=== PATIENT | male | born 1960 | race Two or more races ===

== ENCOUNTER 2022-03-26 12:01 | Inpatient (IN) | payer SELFPAY ==
[~2022-03-26] VITALS: Ht 182.9 cm; Wt 85.0 kg
[2022-03-26] MEDS ORDERED: chlordiazePOXIDE HCL 25 MG CAP PO ONE (12:45)
[2022-03-26] MEDS ORDERED: LORazepam 2MG/ML-1ML VIAL IV ONE ×2 (12:45→16:45)
[2022-03-26 14:05] LABS: Basophils # (auto) 0 10 ^3/uL (0-0.2); Basophils % (auto) 0.1 % (0.0-2.0); Eosinophils # (auto) 0 10 ^3/uL (0-0.8); Hematocrit 39.6 % (41.0-53.0); Hemoglobin 14.1 g/dL (13.5-17.5); Lymphocytes # (auto) 0.3 10 ^3/uL (0.4-5.4); Lymphocytes % (auto) 2.7 % (10.0-50.0); Mean Corpuscular Hemoglobin 31.8 pg (28.0-32.0); Mean Corpuscular Hgb Conc. 35.7 g/dL (32.0-36.0); Mean Corpuscular Volume 89.1 fL (80.0-100.0); Monocytes # (auto) 0.5 10 ^3/uL (0-1.3); Monocytes % (auto) 5.9 % (0.0-12.0); Neutrophils # (auto) 8.6 10 ^3/uL (1.6-8.6); Neutrophils % (auto) 91.3 % (37.0-80.0); Nucleated Red Blood Cells % 0.1 %; Red Blood Cells 4.44 10^6/uL (4.5-5.90); Red Cell Distribution Width 13.7 % (11.8-14.3); White Blood Cell 9.4 10^3/uL (4.4-10.8)
[2022-03-26 14:23] LABS: Albumin 3.8 g/dL (3.4-5.0); Anion Gap 10 (5-15); Blood Alcohol < 3.0 mg/dL (0-5); Blood Urea Nitrogen 18 mg/dL (7-18); Calcium 8.4 mg/dL (8.5-10.1); Carbon Dioxide 25 mmol/L (21-32); Chloride 82 mmol/L (98-107); Glucose 149 mg/dL (74-106); Magnesium 1.9 mg/dL (1.6-2.6); Potassium 3.7 mmol/L (3.5-5.1)
[2022-03-26 14:27] LABS: Alanine Aminotransferase 31 U/L (16-61); Alkaline Phosphatase 76 U/L (45-117); Aspartate Aminotransferase 58 U/L (15-37); Bilirubin, Total 1.3 mg/dL (0.2-1.0); GFR African American 63 mL/min; GFR Non-African American 52 mL/min; Sodium 117 mmol/L (136-145); Total Protein 6.8 g/dL (6.4-8.2)
[2022-03-26 14:30] LABS: BUN/Creatinine Ratio 12.3
[2022-03-26] MEDS ORDERED: SODIUM CHLORIDE 0.9% 1,000 ML IV ONE (15:00)
[2022-03-26 15:23] LABS: Phosphorus 2.4 mg/dL (2.5-4.90)
[2022-03-26] MEDS ORDERED: LORazepam 2MG/ML-1ML VIAL IV PRN (16:45)
[2022-03-26] MEDS ORDERED: DEXTROSE (50%) 50ML SYRG IV PRN (17:00)
[2022-03-26] MEDS ORDERED: hydrALAZINE HCL 20 MG/ML VL IV PRN (17:00)
[2022-03-26] MEDS ORDERED: ONDANSETRON HCL 4 MG/2 ML VIAL IV PRN (17:00)
[2022-03-26] MEDS ORDERED: MORPHINE SULFATE INJ 2 MG/ml SYRG IV PRN (17:00)
[2022-03-26] MEDS ORDERED: NITROGLYCERIN 0.4 MG SL TAB SL PRN (17:00)
[2022-03-26] MEDS: InsuLIN REG 1unit/0.01ml Soln (100units/ml) SC SCH ×2 (17:20→22:00)
[2022-03-26] MEDS: ACCU-CHEK COMFORT CURVE STRIP VI SCH ×2 (17:21→22:29)
[2022-03-26 17:52] LABS: Cholesterol 229 mg/dL (< 200); Triglycerides 97 mg/dL (< 150)
[2022-03-26 17:54] LABS: HDL Cholesterol 80 mg/dL (40-59); LDL Cholesterol 134 mg/dL (< 100)
[2022-03-26] MEDS: FOLIC ACID 1 MG, MULTIPLE VITAMIN 10 ML, THIAMINE INJ 100 MG in SODIUM CHLORIDE 0.9% 1,... INJ SCH (19:42)
[2022-03-26 20:29] LABS: BUN/Creatinine Ratio 12.3; Calcium 8.7 mg/dL (8.5-10.1)
[2022-03-26 20:45] VITALS: BP 146/92
[2022-03-27 01:17] LABS: BUN/Creatinine Ratio 13.7; Potassium 3.5 mmol/L (3.5-5.1)
[2022-03-27 03:28] LABS: Alcohol, Urine < 3.0 mg/dL (0-10); Amphetamine Screen, Urine NEGATIVE (NEGATIVE); Barbiturate Scree,Urine NEGATIVE (NEGATIVE); Benzodiazephine Screen, Urine NEGATIVE (NEGATIVE); Cocaine Screen, Urine NEGATIVE (NEGATIVE); Opiate Scree,Urine NEGATIVE (NEGATIVE); Phencyclidine Screen, Urine NEGATIVE (NEGATIVE)
[2022-03-27 03:35] LABS: Cannabinoid Screen, Urine POSITIVE (NEGATIVE)
[2022-03-27 03:40] LABS: Urine Bacteria NONE SEEN /hpf (None Seen); Urine Blood 1+ /uL (Negative); Urine Specific Gravity 1.008 (1.001-1.035); Urine WBC 1 /hpf (0 - 3)
[2022-03-27 05:00] VITALS: BP 139/74
[2022-03-27 05:52] LABS: Basophils # (auto) 0 10 ^3/uL (0-0.2); Basophils % (auto) 0.1 % (0.0-2.0); Eosinophils # (auto) 0 10 ^3/uL (0-0.8); Hematocrit 36.7 % (41.0-53.0); Hemoglobin 12.9 g/dL (13.5-17.5); Lymphocytes # (auto) 0.4 10 ^3/uL (0.4-5.4); Lymphocytes % (auto) 4.2 % (10.0-50.0); Mean Corpuscular Hemoglobin 31.5 pg (28.0-32.0); Mean Corpuscular Hgb Conc. 35.2 g/dL (32.0-36.0); Mean Corpuscular Volume 89.6 fL (80.0-100.0); Monocytes # (auto) 0.6 10 ^3/uL (0-1.3); Monocytes % (auto) 6.7 % (0.0-12.0); Neutrophils # (auto) 7.8 10 ^3/uL (1.6-8.6); Red Cell Distribution Width 13.8 % (11.8-14.3); White Blood Cell 8.7 10^3/uL (4.4-10.8)
[2022-03-27] MEDS: ACCU-CHEK COMFORT CURVE STRIP VI SCH ×4 (06:05→21:45)
[2022-03-27] MEDS: InsuLIN REG 1unit/0.01ml Soln (100units/ml) SC SCH ×4 (06:07→21:45)
[2022-03-27 06:11] LABS: BUN/Creatinine Ratio 13.5; Calcium 8.1 mg/dL (8.5-10.1); Potassium 3.4 mmol/L (3.5-5.1)
[2022-03-27 08:00] VITALS: BP 148/67
[2022-03-27 12:00] VITALS: BP 145/78
[2022-03-27 12:34] LABS: BUN/Creatinine Ratio 15.7; Calcium 8.1 mg/dL (8.5-10.1); Potassium 3.5 mmol/L (3.5-5.1)
[2022-03-27] MEDS: traMADol HCL 50 MG TAB PO PRN ×2 (15:46→21:47)
[2022-03-27] MEDS: SODIUM CHLORIDE 0.9% 1,000 ML IV SCH ×2 (15:54→23:00)
[2022-03-27 16:00] VITALS: BP 121/53
[2022-03-27] MEDS: FOLIC ACID 1 MG, MULTIPLE VITAMIN 10 ML, THIAMINE INJ 100 MG in SODIUM CHLORIDE 0.9% 1,... INJ SCH (18:00)
[2022-03-27 18:13] LABS: BUN/Creatinine Ratio 14.4; Calcium 7.9 mg/dL (8.5-10.1); Potassium 3.4 mmol/L (3.5-5.1)
[2022-03-27] MEDS: chlordiazePOXIDE HCL 25 MG CAP PO SCH (18:42)
[2022-03-27 22:00] VITALS: BP 161/65
[2022-03-28] MEDS: chlordiazePOXIDE HCL 25 MG CAP PO SCH ×5 (00:18→23:47)
[2022-03-28] MEDS: SODIUM CHLORIDE 0.9% 1,000 ML IV SCH ×3 (02:50→16:10)
[2022-03-28 05:00] VITALS: BP 148/78
[2022-03-28] MEDS ORDERED: LOSA25TA38 PO (05:28)
[2022-03-28] MEDS ORDERED: ASPI-378 OR (05:28)
[2022-03-28] MEDS ORDERED: SERT50TA19 PO (05:28)
[2022-03-28] MEDS ORDERED: INSLANTI SC (05:28)
[2022-03-28] MEDS ORDERED: HYDR-4072 PO (05:28)
[2022-03-28] MEDS ORDERED: MORP30TA PO (05:28)
[2022-03-28] MEDS ORDERED: FENO160T8 PO (05:28)
[2022-03-28] MEDS: ACCU-CHEK COMFORT CURVE STRIP VI SCH ×4 (06:11→21:56)
[2022-03-28] MEDS: InsuLIN REG 1unit/0.01ml Soln (100units/ml) SC SCH ×4 (06:11→22:09)
[2022-03-28] MEDS: traMADol HCL 50 MG TAB PO PRN (06:12)
[2022-03-28 08:00] VITALS: BP 122/68
[2022-03-28 08:43] LABS: Calcium 7.6 mg/dL (8.5-10.1); Potassium 3.2 mmol/L (3.5-5.1)
[2022-03-28 08:46] LABS: BUN/Creatinine Ratio 13.3; Bilirubin, Total 0.6 mg/dL (0.2-1.0); Total Protein 5.8 g/dL (6.4-8.2)
[2022-03-28] MEDS: HYDROcodone-ACET 10/325MG TAB PO PRN ×3 (10:11→23:13)
[2022-03-28 12:00] VITALS: BP 133/70
[2022-03-28 16:00] VITALS: BP 134/76
[2022-03-28] MEDS: FOLIC ACID 1 MG, MULTIPLE VITAMIN 10 ML, THIAMINE INJ 100 MG in SODIUM CHLORIDE 0.9% 1,... INJ SCH (17:26)
[2022-03-29] MEDS: SODIUM CHLORIDE 0.9% 1,000 ML IV SCH ×3 (01:00→12:10)
[2022-03-29 04:49] VITALS: BP 159/81
[2022-03-29] MEDS: ACCU-CHEK COMFORT CURVE STRIP VI SCH ×2 (06:35→13:51)
[2022-03-29] MEDS: chlordiazePOXIDE HCL 25 MG CAP PO SCH ×2 (06:35→13:51)
[2022-03-29] MEDS: InsuLIN REG 1unit/0.01ml Soln (100units/ml) SC SCH ×2 (06:45→11:30)
[2022-03-29] MEDS: HYDROcodone-ACET 10/325MG TAB PO PRN (08:00)
[2022-03-29 09:00] VITALS: BP 159/79
[2022-03-29] MEDS ORDERED: FOLI1TAB6 PO (10:06)
[2022-03-29] MEDS ORDERED: CHL25C PO (10:06)
[2022-03-29] MEDS ORDERED: THIA100T5 PO (10:06)
[2022-03-29] MEDS ORDERED: TRAM50TA2 PO (10:06)
[2022-03-29 12:57] VITALS: BP 141/78
[2022-03-29 13:00] VITALS: BP 141/78
== END 2022-03-29 14:50 | disposition home or self-care (01) | DRG 92 ==
LOC: ER 12:01 → EDBD 12:01 → TELE 16:59 → TELE-EAST 20:26
PROVIDERS: ADMIT Registered Nurse; ATTEND Registered Nurse
DX: G92.9 Unspecified toxic encephalopathy (principal); C18.9 Malignant neoplasm of colon, unspecified; E87.1 Hypo-osmolality and hyponatremia; E11.22 Type 2 diabetes mellitus with diabetic chronic kidney disease; E11.65 Type 2 diabetes mellitus with hyperglycemia; I12.9 Hypertensive chronic kidney disease with stage 1 through stage 4 chronic kidney disease, or unspecified chronic kidney disease; K76.0 Fatty (change of) liver, not elsewhere classified; N18.31 Chronic kidney disease, stage 3a; Z20.822 Contact with and (suspected) exposure to COVID-19; F10.129 Alcohol abuse with intoxication, unspecified; Y90.9 Presence of alcohol in blood, level not specified; Z85.038 Personal history of other malignant neoplasm of large intestine; Z89.512 Acquired absence of left leg below knee; Z71.41 Alcohol abuse counseling and surveillance of alcoholic
CPT/HCPCS: 36415; 70450; 71045; 80048; 80053; 80061; 80307; 80320; 81001; 82140; 82550; 82962; 83036; 83605; 83690; 83735; 83880; 83930; 84100; 84443; 84484; 85025; 93005; 93306; 93886; 96361; 96374; 96375; 99291; G0378; J1815

== ENCOUNTER 2022-05-24 09:07 | Inpatient (IN) | payer BC, MEDICAID, OTHER ==
[~2022-05-24] VITALS: Ht 203.2 cm; Wt 79.0 kg
[~2022-05-24 09:07] MED LIST: ASPI-378 OR; CHL25C PO; FENO160T8 PO; FOLI1TAB6 PO; HYDR-4072 PO; INSLANTI SC; LOSA25TA38 PO; MORP30TA PO; SERT50TA19 PO; THIA100T5 PO; TRAM50TA2 PO
[2022-05-24] MEDS ORDERED: SODIUM CHLORIDE 0.9% 500 ML IV ONE (09:45)
[2022-05-24 10:31] LABS: Basophils # (auto) 0.1 10 ^3/uL (0-0.2); Basophils % (auto) 1.1 % (0.0-2.0); Eosinophils # (auto) 0.1 10 ^3/uL (0-0.8); Eosinophils % (auto) 2.3 % (0.0-7.0); Hematocrit 47.2 % (41.0-53.0); Hemoglobin 15.3 g/dL (13.5-17.5); Lymphocytes # (auto) 0.9 10 ^3/uL (0.4-5.4); Lymphocytes % (auto) 13.8 % (10.0-50.0); Mean Corpuscular Hemoglobin 30.4 pg (28.0-32.0); Mean Corpuscular Hgb Conc. 32.5 g/dL (32.0-36.0); Mean Corpuscular Volume 93.6 fL (80.0-100.0); Monocytes # (auto) 0.3 10 ^3/uL (0-1.3); Monocytes % (auto) 4.7 % (0.0-12.0); Neutrophils # (auto) 5.1 10 ^3/uL (1.6-8.6); Neutrophils % (auto) 78.1 % (37.0-80.0); Nucleated Red Blood Cells % 0.1 %; Red Blood Cells 5.04 10^6/uL (4.5-5.90); White Blood Cell 6.5 10^3/uL (4.4-10.8)
[2022-05-24 10:54] LABS: Urine Bacteria MANY /hpf (None Seen); Urine Blood 1+ /uL (Negative); Urine Mucus FEW (None Seen); Urine Specific Gravity 1.016 (1.001-1.035); Urine WBC 652 /hpf (0 - 3); Urine WBC Clumps PRESENT /hpf (None Seen)
[2022-05-24 10:56] LABS: Albumin 4.3 g/dL (3.4-5.0); Calcium 9.4 mg/dL (8.5-10.1)
[2022-05-24 11:11] LABS: BUN/Creatinine Ratio 12.2; Bilirubin, Total 0.9 mg/dL (0.2-1.0); Total Protein 7.5 g/dL (6.4-8.2)
[2022-05-24] MEDS ORDERED: IOHEXOL 300 MG/ML 100ML BOTTLE IJ ONE (11:28)
[2022-05-24] MEDS ORDERED: cloNIDine HCL 0.1 MG TAB PO ONE (13:00)
[2022-05-24] MEDS ORDERED: cefTRIAXone 1GM/50ML D5W 50 ML IV ONE (14:45)
[2022-05-24] MEDS ORDERED: NITROGLYCERIN 0.4 MG SL TAB SL PRN (15:15)
[2022-05-24] MEDS ORDERED: hydrALAZINE HCL 20 MG/ML VL IV PRN (15:15)
[2022-05-24] MEDS ORDERED: hydrALAZINE HCL 20 MG/ML VL IV ONE (15:15)
[2022-05-24] MEDS ORDERED: MORPHINE SULFATE INJ 2 MG/ml SYRG IV PRN (15:15)
[2022-05-24] MEDS ORDERED: DEXTROSE (50%) 50ML SYRG IV PRN (15:30)
[2022-05-24] MEDS: SOD CHL 0.45% 1,000 ML IV SCH ×2 (15:42→20:00)
[2022-05-24] MEDS: InsuLIN REG 1unit/0.01ml Soln (100units/ml) SC SCH ×2 (17:00→22:00)
[2022-05-24] MEDS: ACCU-CHEK COMFORT CURVE STRIP VI SCH ×2 (17:08→22:45)
[2022-05-24 20:00] VITALS: BP 146/82
[2022-05-25 05:00] VITALS: BP 133/82
[2022-05-25 06:14] LABS: Basophils # (auto) 0.1 10 ^3/uL (0-0.2); Basophils % (auto) 1.1 % (0.0-2.0); Eosinophils # (auto) 0.1 10 ^3/uL (0-0.8); Eosinophils % (auto) 2.6 % (0.0-7.0); Hemoglobin 13.5 g/dL (13.5-17.5); Lymphocytes # (auto) 0.7 10 ^3/uL (0.4-5.4); Lymphocytes % (auto) 15.9 % (10.0-50.0); Mean Corpuscular Hemoglobin 30.8 pg (28.0-32.0); Mean Corpuscular Hgb Conc. 33.7 g/dL (32.0-36.0); Mean Corpuscular Volume 91.6 fL (80.0-100.0); Monocytes # (auto) 0.3 10 ^3/uL (0-1.3); Monocytes % (auto) 6.8 % (0.0-12.0); Neutrophils # (auto) 3.3 10 ^3/uL (1.6-8.6); Neutrophils % (auto) 73.6 % (37.0-80.0); Nucleated Red Blood Cells % 0.1 %; Red Blood Cells 4.37 10^6/uL (4.5-5.90); Red Cell Distribution Width 13.8 % (11.8-14.3); White Blood Cell 4.5 10^3/uL (4.4-10.8)
[2022-05-25 06:17] LABS: Albumin 3.4 g/dL (3.4-5.0)
[2022-05-25 06:22] LABS: BUN/Creatinine Ratio 15.6; Bilirubin, Total 0.7 mg/dL (0.2-1.0); Calcium 8.7 mg/dL (8.5-10.1); Total Protein 6.3 g/dL (6.4-8.2)
[2022-05-25] MEDS: ACCU-CHEK COMFORT CURVE STRIP VI SCH ×4 (06:29→21:57)
[2022-05-25] MEDS: InsuLIN REG 1unit/0.01ml Soln (100units/ml) SC SCH ×4 (06:34→21:57)
[2022-05-25 08:00] VITALS: BP 161/88
[2022-05-25] MEDS: cefTRIAXone 1GM/50ML D5W 50 ML IV SCH (08:40)
[2022-05-25] MEDS: ENOXAPARIN SOD 40 MG/0.4 ML SYRINGE SC SCH (08:41)
[2022-05-25 12:00] VITALS: BP 150/86
[2022-05-25] MEDS ORDERED: VANCOMYCIN PER PHARMACY 0 MG IV SCH (12:45)
[2022-05-25] MEDS: SODIUM CHLORIDE 0.9% 1,000 ML IV SCH ×2 (13:00→19:40)
[2022-05-25] MEDS: VANCOMYCIN 1GM/250ML 250 ML IV SCH (16:34)
[2022-05-25 17:00] VITALS: BP 187/101
[2022-05-25] MEDS: cloNIDine HCL 0.1 MG TAB PO PRN (17:11)
[2022-05-25] MEDS: HYDROcodone-ACET 7.5/325MG TAB PO PRN (21:59)
[2022-05-25 22:00] VITALS: BP 106/67
[2022-05-26] MEDS: VANCOMYCIN 1GM/250ML 250 ML IV SCH (01:05)
[2022-05-26] MEDS: SODIUM CHLORIDE 0.9% 1,000 ML IV SCH ×2 (01:09→09:19)
[2022-05-26 05:00] VITALS: BP 128/79
[2022-05-26 05:57] LABS: Basophils # (auto) 0 10 ^3/uL (0-0.2); Basophils % (auto) 1.1 % (0.0-2.0); Eosinophils # (auto) 0.1 10 ^3/uL (0-0.8); Eosinophils % (auto) 3.3 % (0.0-7.0); Hematocrit 37.7 % (41.0-53.0); Hemoglobin 12.7 g/dL (13.5-17.5); Lymphocytes # (auto) 0.9 10 ^3/uL (0.4-5.4); Lymphocytes % (auto) 22.8 % (10.0-50.0); Mean Corpuscular Hemoglobin 30.9 pg (28.0-32.0); Mean Corpuscular Hgb Conc. 33.6 g/dL (32.0-36.0); Monocytes # (auto) 0.3 10 ^3/uL (0-1.3); Monocytes % (auto) 7.7 % (0.0-12.0); Neutrophils # (auto) 2.5 10 ^3/uL (1.6-8.6); Neutrophils % (auto) 65.1 % (37.0-80.0); Nucleated Red Blood Cells % 0.1 %; Red Cell Distribution Width 13.9 % (11.8-14.3); White Blood Cell 3.8 10^3/uL (4.4-10.8)
[2022-05-26] MEDS: ACCU-CHEK COMFORT CURVE STRIP VI SCH ×2 (06:21→11:07)
[2022-05-26] MEDS: InsuLIN REG 1unit/0.01ml Soln (100units/ml) SC SCH ×2 (06:21→11:44)
[2022-05-26] MEDS: HYDROcodone-ACET 7.5/325MG TAB PO PRN (06:23)
[2022-05-26 06:26] LABS: BUN/Creatinine Ratio 13.9; Calcium 8.3 mg/dL (8.5-10.1)
[2022-05-26 09:00] VITALS: BP 164/96
[2022-05-26] MEDS: ENOXAPARIN SOD 40 MG/0.4 ML SYRINGE SC SCH (09:20)
[2022-05-26] MEDS: cefTRIAXone 1GM/50ML D5W 50 ML IV SCH (09:20)
[2022-05-26] MEDS: cloNIDine HCL 0.1 MG TAB PO PRN (09:30)
[2022-05-26] MEDS ORDERED: levoFLOXacin 500MG 100 ML IV ONE (10:45)
[2022-05-26] MEDS ORDERED: LEVO500T31 PO (10:55)
[2022-05-26] MEDS ORDERED: HYDR-4902 PO (10:55)
[2022-05-26 12:34] VITALS: BP 145/84
[2022-05-26 13:00] VITALS: BP 145/84
[2022-05-27] MEDS ORDERED: levoFLOXacin 500MG 100 ML IV SCH (10:00)
== END 2022-05-26 14:35 | disposition home or self-care (01) | DRG 872 ==
LOC: ER 09:07 → TELE 15:27 → TELE-WESTW 22:20
PROVIDERS: ADMIT Registered Nurse; ATTEND Family Medicine
DX: A41.01 Sepsis due to Methicillin susceptible Staphylococcus aureus (principal); N17.9 Acute kidney failure, unspecified; N30.00 Acute cystitis without hematuria; Z68.1 Body mass index [BMI] 19.9 or less, adult; R62.7 Adult failure to thrive; I16.0 Hypertensive urgency; E86.0 Dehydration; N18.31 Chronic kidney disease, stage 3a; E11.22 Type 2 diabetes mellitus with diabetic chronic kidney disease; F10.10 Alcohol abuse, uncomplicated; Z20.822 Contact with and (suspected) exposure to COVID-19; I12.9 Hypertensive chronic kidney disease with stage 1 through stage 4 chronic kidney disease, or unspecified chronic kidney disease; K76.0 Fatty (change of) liver, not elsewhere classified; Z83.3 Family history of diabetes mellitus; Z85.048 Personal history of other malignant neoplasm of rectum, rectosigmoid junction, and anus; Z89.512 Acquired absence of left leg below knee; Z90.49 Acquired absence of other specified parts of digestive tract; Z93.3 Colostomy status; Z92.21 Personal history of antineoplastic chemotherapy; Z71.41 Alcohol abuse counseling and surveillance of alcoholic
CPT/HCPCS: 36415; 71260; 74177; 80048; 80053; 81001; 82962; 83735; 85025; 87040; 87086; 87088; 87186; 96361; 96365; 96375; G0378; J0696; J1815; J1956

== ENCOUNTER → 2022-07-22 | Outpatient (CLI) | payer MEDICAID ==
[~2022-07-22] MED LIST changes: +HYDR-4902 PO; +LEVO500T31 PO
[2022-07-22 09:23] LABS: Basophils # (auto) 0.1 10 ^3/uL (0-0.2); Eosinophils # (auto) 0.2 10 ^3/uL (0-0.8); Eosinophils % (auto) 3.9 % (0.0-7.0); Hematocrit 45.7 % (41.0-53.0); Hemoglobin 15.2 g/dL (13.5-17.5); Lymphocytes % (auto) 18.8 % (10.0-50.0); Mean Corpuscular Hemoglobin 31.1 pg (28.0-32.0); Mean Corpuscular Hgb Conc. 33.2 g/dL (32.0-36.0); Mean Corpuscular Volume 93.8 fL (80.0-100.0); Monocytes # (auto) 0.4 10 ^3/uL (0-1.3); Monocytes % (auto) 6.9 % (0.0-12.0); Neutrophils # (auto) 3.7 10 ^3/uL (1.6-8.6); Neutrophils % (auto) 69.4 % (37.0-80.0); Red Blood Cells 4.88 10^6/uL (4.5-5.90); Red Cell Distribution Width 14.7 % (11.8-14.3); White Blood Cell 5.3 10^3/uL (4.4-10.8)
[2022-07-22 09:41] LABS: Albumin 3.9 g/dL (3.4-5.0); Potassium 4.7 mmol/L (3.5-5.1)
[2022-07-22 09:44] LABS: BUN/Creatinine Ratio 20.2; Bilirubin, Total 0.7 mg/dL (0.2-1.0); Total Protein 6.9 g/dL (6.4-8.2)
[2022-07-22 10:08] LABS: Urine Bacteria NONE SEEN /hpf (None Seen); Urine Blood Negative /uL (Negative); Urine Specific Gravity 1.015 (1.001-1.035); Urine WBC <1 /hpf (0 - 3)
== END | disposition home or self-care (01) ==
LOC: LAB 08:55
PROVIDERS: ATTEND Internal Medicine
DX: Z12.11 Encounter for screening for malignant neoplasm of colon (principal); E11.9 Type 2 diabetes mellitus without complications; I10 Essential (primary) hypertension; N39.0 Urinary tract infection, site not specified; F10.10 Alcohol abuse, uncomplicated
CPT/HCPCS: 36415; 80053; 80061; 81001; 82043; 83036; 84153; 84443; 85025

== ENCOUNTER → 2022-07-28 | Outpatient (CLI) | payer MEDICAID | END | disposition home or self-care (01) | LOC: LAB 13:41 | PROVIDERS: ATTEND Internal Medicine | DX: Z12.11 Encounter for screening for malignant neoplasm of colon (principal); E11.9 Type 2 diabetes mellitus without complications; I10 Essential (primary) hypertension; N39.0 Urinary tract infection, site not specified | CPT/HCPCS: 82270 ==

== ENCOUNTER → 2022-08-11 | Outpatient (CLI) | payer MEDICAID ==
[2022-08-11 12:57] LABS: Albumin 3.9 g/dL (3.4-5.0); Bilirubin, Direct 0.2 mg/dL (0-0.2); Total Protein 6.8 g/dL (6.4-8.2)
== END | disposition home or self-care (01) ==
LOC: LAB 11:52
PROVIDERS: ATTEND Internal Medicine
DX: E78.5 Hyperlipidemia, unspecified (principal)
CPT/HCPCS: 36415; 80076

== ENCOUNTER → 2022-10-22 | Outpatient (CLI) | payer MEDICAID ==
[2022-10-22 12:32] LABS: Albumin 4.3 g/dL (3.4-5.0); Bilirubin, Direct 0.2 mg/dL (0-0.2); Bilirubin, Total 0.9 mg/dL (0.2-1.0); Total Protein 7.4 g/dL (6.4-8.2)
== END | disposition home or self-care (01) ==
LOC: LAB 11:43
PROVIDERS: ATTEND Internal Medicine
DX: E78.5 Hyperlipidemia, unspecified (principal)
CPT/HCPCS: 36415; 80061; 80076

== ENCOUNTER → 2023-01-21 | Outpatient (CLI) | payer MEDICAID ==
[2023-01-21 12:13] LABS: Cholesterol 182 mg/dL (< 200); HDL Cholesterol 58 mg/dL (40-59); LDL Cholesterol 112 mg/dL (< 100); Triglycerides 87 mg/dL (< 150)
== END | disposition home or self-care (01) ==
LOC: LAB 10:23
PROVIDERS: ATTEND Internal Medicine
DX: E11.8 Type 2 diabetes mellitus with unspecified complications (principal); I10 Essential (primary) hypertension; E78.5 Hyperlipidemia, unspecified
CPT/HCPCS: 36415; 80061; 80074; 83036

== ENCOUNTER → 2023-05-02 | Outpatient (CLI) | payer MEDICAID ==
[~2023-05-02] MED LIST changes: +FENO160T PO; -FENO160T8 PO; +FOLI-119 PO; -FOLI1TAB6 PO; +LOSA25TA15 PO; -LOSA25TA38 PO; +SERT-206 PO; -SERT50TA19 PO
[2023-05-02 11:04] LABS: Albumin 4.2 g/dL (3.4-5.0); Calcium 8.8 mg/dL (8.5-10.1); Potassium 5.2 mmol/L (3.5-5.1)
[2023-05-02 11:10] LABS: Bilirubin, Total 0.9 mg/dL (0.2-1.0); Total Protein 7.4 g/dL (6.4-8.2)
== END | disposition home or self-care (01) ==
LOC: LAB 10:14
PROVIDERS: ATTEND Internal Medicine
DX: E11.9 Type 2 diabetes mellitus without complications (principal); E78.5 Hyperlipidemia, unspecified
CPT/HCPCS: 36415; 80053; 83036

== ENCOUNTER → 2023-05-09 | Outpatient (CLI) | payer MEDICAID ==
[2023-05-09 12:23] LABS: BUN/Creatinine Ratio 21.4 (10.0-20.0); Potassium 5.1 mmol/L (3.5-5.1)
== END | disposition home or self-care (01) ==
LOC: LAB 10:09
PROVIDERS: ATTEND Internal Medicine
DX: E11.8 Type 2 diabetes mellitus with unspecified complications (principal)
CPT/HCPCS: 36415; 80048

== ENCOUNTER → 2023-06-09 | Outpatient (CLI) | payer MEDICAID ==
[2023-06-09 12:12] LABS: Chloride 108 mmol/L (98-107); Potassium 5.1 mmol/L (3.5-5.1); Sodium 137 mmol/L (136-145)
[2023-06-09 12:13] LABS: Anion Gap 6 (5-15); Calcium 9.3 mg/dL (8.5-10.1); Carbon Dioxide 23 mmol/L (20-30)
[2023-06-09 12:18] LABS: BUN/Creatinine Ratio 16.8 (10.0-20.0); Blood Urea Nitrogen 27 mg/dL (9-23); Glucose 111 mg/dL (74-106); Triglycerides 107 mg/dL (< 150)
[2023-06-09 12:19] LABS: LDL Cholesterol 174 mg/dL (< 100)
[2023-06-09 12:20] LABS: Cholesterol 243 mg/dL (< 200); HDL Cholesterol 52 mg/dL (40-59)
== END | disposition home or self-care (01) ==
LOC: LAB 11:33
PROVIDERS: ATTEND Internal Medicine
DX: E11.22 Type 2 diabetes mellitus with diabetic chronic kidney disease (principal); N18.30 Chronic kidney disease, stage 3 unspecified
CPT/HCPCS: 36415; 80048; 80061; 83036

== ENCOUNTER → 2023-07-15 | Outpatient (CLI) | payer MEDICAID ==
[2023-07-15 09:32] LABS: Albumin 4.8 g/dL (3.2-4.8); Bilirubin, Direct 0.2 mg/dL (<0.3); Bilirubin, Total 0.8 mg/dL (0.2-1.0); Total Protein 7.6 g/dL (5.7-8.2)
== END | disposition home or self-care (01) ==
LOC: LAB 08:48
PROVIDERS: ATTEND Internal Medicine
DX: I12.9 Hypertensive chronic kidney disease with stage 1 through stage 4 chronic kidney disease, or unspecified chronic kidney disease (principal); N18.30 Chronic kidney disease, stage 3 unspecified
CPT/HCPCS: 36415; 80076

== ENCOUNTER → 2023-09-05 | Outpatient (CLI) | payer MEDICAID ==
[2023-09-05 11:29] LABS: Creatinine, Urine 209.71 mg/dL (30.0-125.0)
[2023-09-05 11:33] LABS: Alanine Aminotransferase 18 U/L (7-40); Albumin 4.7 g/dL (3.2-4.8); Alkaline Phosphatase 73 U/L (46-116); Anion Gap 7 (5-15); Aspartate Aminotransferase 12 U/L (13-40); BUN/Creatinine Ratio 19.1 (10.0-20.0); Blood Urea Nitrogen 31 mg/dL (9-23); Calcium 9.3 mg/dL (8.5-10.1); Carbon Dioxide 24 mmol/L (20-30); Chloride 109 mmol/L (98-107); Cholesterol 281 mg/dL (< 200); Glucose 177 mg/dL (74-106); HDL Cholesterol 48 mg/dL (40-59); LDL Cholesterol 218 mg/dL (< 100); Potassium 5.3 mmol/L (3.5-5.1); Sodium 140 mmol/L (136-145); Triglycerides 157 mg/dL (< 150)
[2023-09-05 11:34] LABS: Bilirubin, Total 0.5 mg/dL (0.2-1.0); Total Protein 7.1 g/dL (5.7-8.2)
== END | disposition home or self-care (01) ==
LOC: LAB 10:16
PROVIDERS: ATTEND Internal Medicine
DX: I12.9 Hypertensive chronic kidney disease with stage 1 through stage 4 chronic kidney disease, or unspecified chronic kidney disease (principal); E11.22 Type 2 diabetes mellitus with diabetic chronic kidney disease; N18.30 Chronic kidney disease, stage 3 unspecified
CPT/HCPCS: 36415; 80053; 80061; 82043; 82570

== ENCOUNTER 2025-02-21 09:57 | Outpatient (CLI) | payer MEDICAID ==
[~2025-02-21 09:57] MED LIST changes: +LOSA-533 PO; -LOSA25TA15 PO
[2025-02-21 10:32] LABS: Basophils # (auto) 0 10 ^3/uL (0-0.2); Basophils % (auto) 0.8 % (0.0-2.0); Eosinophils # (auto) 0.1 10 ^3/uL (0-0.8); Eosinophils % (auto) 2.4 % (0.0-7.0); Hematocrit 48.3 % (41.0-53.0); Hemoglobin 16.4 g/dL (13.5-17.5); Lymphocytes # (auto) 0.9 10 ^3/uL (0.4-5.4); Lymphocytes % (auto) 14.2 % (10.0-50.0); Mean Corpuscular Hemoglobin 32.5 pg (28.0-32.0); Mean Corpuscular Volume 95.7 fL (80.0-100.0); Monocytes # (auto) 0.4 10 ^3/uL (0-1.3); Neutrophils # (auto) 4.6 10 ^3/uL (1.6-8.6); Neutrophils % (auto) 75.6 % (37.0-80.0); Platelet Count (auto) 268 10^3/uL (140-450); Red Blood Cells 5.04 10^6/uL (4.5-5.90); Red Cell Distribution Width 14.8 % (11.8-14.3); White Blood Cell 6.1 10^3/uL (4.4-10.8)
[2025-02-21 11:10] LABS: Alanine Aminotransferase 17 U/L (7-40); Alkaline Phosphatase 77 U/L (46-116); Anion Gap 9 (5-15); Aspartate Aminotransferase 18 U/L (13-40); BUN/Creatinine Ratio 15.6 (10.0-20.0); Bilirubin, Total 0.8 mg/dL (0.2-1.0); Blood Urea Nitrogen 23 mg/dL (9-23); Calcium 10.2 mg/dL (8.7-10.4); Carbon Dioxide 24 mmol/L (20-31); Chloride 107 mmol/L (98-107); Potassium 4.7 mmol/L (3.5-5.1); Sodium 140 mmol/L (136-145); Total Protein 7.3 g/dL (5.7-8.2); Triglycerides 105 mg/dL (< 150)
[2025-02-21 11:12] LABS: Albumin 4.8 g/dL (3.2-4.8); Cholesterol 295 mg/dL (< 200); Glucose 131 mg/dL (74-106); HDL Cholesterol 65 mg/dL (40-59); LDL Cholesterol 212 mg/dL (< 100)
== END 2025-02-21 17:00 | disposition home or self-care (01) ==
LOC: LAB 09:57
PROVIDERS: ATTEND Internal Medicine
DX: E11.42 Type 2 diabetes mellitus with diabetic polyneuropathy (principal); Z12.11 Encounter for screening for malignant neoplasm of colon; Z00.00 Encounter for general adult medical examination without abnormal findings; Z79.899 Other long term (current) drug therapy
CPT/HCPCS: 36415; 80053; 80061; 83036; 84153; 84443; 85025

== ENCOUNTER 2025-02-27 15:37 | Outpatient (CLI) | payer MEDICAID ==
[2025-02-27 15:50] LABS: Urine Bacteria None Seen /hpf (None Seen)
[2025-02-27 16:00] LABS: Urine Blood Negative /uL (Negative); Urine Clarity Clear (Clear); Urine Color Light-Yellow (Yellow); Urine Protein, UAD TRACE (Negative); Urine Specific Gravity 1.015 (1.001-1.035); Urine Squamous Epithelial Cell None Seen /hpf (<5); Urine Urobilinogen Normal (Negative); Urine WBC 1 /HPF (0-3); Urine pH 5.5 (5.0-9.0)
== END 2025-02-27 17:00 | disposition home or self-care (01) ==
LOC: LAB 15:37
PROVIDERS: ATTEND Internal Medicine
DX: Z12.11 Encounter for screening for malignant neoplasm of colon (principal); E11.42 Type 2 diabetes mellitus with diabetic polyneuropathy; Z00.00 Encounter for general adult medical examination without abnormal findings
CPT/HCPCS: 81001; 82270

== ENCOUNTER 2025-07-25 09:15 | Inpatient (IN) | payer MEDICAID ==
[~2025-07-25] VITALS: Ht 203.2 cm; Wt 85.6 kg
--- NOTE | 2025-07-25 09:32 | ECG ---
[facility] Test Date: 2025-07-25 Test Time: 09:27:39 Pat Name: SOPHIE DEL TORO Department: Room: 0236 Gender: M Life Skills Teacher: ER : 1960 Requested By: ERNESTO JIMENEZ Order Number: [id number] Reading MD: Reji Colón Measurements Intervals [place] Rate: 92 P: -40 NH: 158 QRS: 52 QRSD: 96 T: 68 QT: 369 QTc: 457 Interpretive Statements Sinus rhythm Atrial premature complex Baseline wander in lead(s) III,aVF,V2 Electronically Signed On 07-30-2025 13:26:31 PST by Reji Colón Please click the below link to view image of tracing.
--- NOTE | 2025-07-25 10:11 | DVH ---
CHEST RADIOGRAPH Indication: sob Technique: Single frontal view of the chest was obtained Comparison: CHEST PORTABLE on DOS: 03/26/22, CXRP on DOS: 03/26/22 FINDINGS: Lines and Tubes: Anterior fusion lower cervical spine Lungs: No focal consolidation. Pleura: No effusion. No pneumothorax. Cardiomediastinal contours: Unremarkable Bones: No acute osseous abnormality. IMPRESSION: 1. No acute cardiopulmonary disease.
[2025-07-25 10:20] LABS: Hematocrit 46.3 % (41.0-53.0); Hemoglobin 15.4 g/dL (13.5-17.5); Mean Corpuscular Hemoglobin 32.4 pg (28.0-32.0); Mean Corpuscular Volume 97.2 fL (80.0-100.0); Nucleated Red Blood Cells % 0.0 %
[2025-07-25 10:28] LABS: Potassium 4.3 mmol/L (3.5-5.1)
[2025-07-25 10:29] LABS: Anion Gap 10 (5-15); Carbon Dioxide 25 mmol/L (20-31)
[2025-07-25 10:30] LABS: Calcium 9.7 mg/dL (8.7-10.4)
[2025-07-25 10:31] LABS: Chloride 96 mmol/L (98-107); Sodium 131 mmol/L (136-145)
[2025-07-25 10:34] LABS: BUN/Creatinine Ratio 7.6 (10.0-20.0); Blood Urea Nitrogen 13 mg/dL (9-23)
[2025-07-25 10:34] LABS: Urine Protein, UAD 2+ (Negative)
[2025-07-25 10:36] LABS: Glucose 155 mg/dL (74-106)
[2025-07-25] MEDS: SODIUM CHLORIDE 0.9% 1,000 ML IV ONE (11:11)
[2025-07-25] MEDS: ONDANSETRON HCL 4 MG/2 ML VIAL IV ONE ×2 (11:12→14:30)
[2025-07-25] MEDS: MORPHINE SULFATE INJ 2 MG/ml SYRG IV ONE (11:13)
[2025-07-25] MEDS: IOHEXOL 300 MG/ML 100ML BOTTLE IJ ONE (11:13)
[2025-07-25] MEDS: MORPHINE SULFATE 4 MG/ML SYR/VIAL IV ONE (11:14)
--- NOTE | 2025-07-25 11:35 | DVH ---
Indication: abdominal pain Technique: CT axial images of the abdomen and pelvis are obtained with contrast. Coronal and sagittal reformats were obtained. Radiation Dose Information: CTDI volume is 12.2 mGy. Dose-length product is 789 mGy*cm Comparison: CT CHEST/AB/PL W CON- IV ONLY on DOS: 05/24/22 FINDINGS: Lung bases demonstrate atelectasis possible right lower lobe nodule measuring 9 mm. Coronary artery c alcification disease. Adrenal glands, spleen, pancreas unremarkable. Hepatic steatosis. No CT evidence for cholelithiasis. Kidneys demonstrate no hydronephrosis. Gastric distention. Small bowel loops are normal in caliber. Possible postsurgical changes in the sigmoid colon. Colonic diverticula. Postsurgical changes transve rse colon. No secondary signs for appendicitis. Abdominal aortic atherosclerotic disease. Bladder partially distended. No free pelvic fluid. No ingui nal lymphadenopathy. No aggressive osseous process. [id number] thoracolumbar degenerative disc disease. IMPRESSION: Postsurgical changes large bowel as described. Moderate gastric distention. Hepatic steatosis. Atherosclerotic disease. Possible 9 mm right lower lobe solid nodule. Recommend follow-up per Fleischner society criteria. Other findings as described
[2025-07-25] MEDS: HYDROmorphone HCL 2 MG/ML VL/or syr IV ONE (14:37)
[2025-07-25] MEDS ORDERED: ACETAMINOPHEN 325 MG TAB PO PRN (15:00)
[2025-07-25] MEDS ORDERED: DEXTROSE (50%) 50ML SYRG IV PRN (15:00)
[2025-07-25] MEDS: KETOROLAC TROMETH 30 MG/ML 1ML VIAL IV PRN (18:05)
[2025-07-25] MEDS: ACCU-CHEK COMFORT CURVE STRIP VI SCH (18:05)
[2025-07-25] MEDS: InsuLIN REG 1unit/0.01ml Soln (100units/ml) SC SCH (18:05)
[2025-07-25 18:24] VITALS: BP 175/100; PULSE 90; RESP 18; TEMP 98.5; O2SAT 97
[2025-07-25 21:00] VITALS: BP 167/98; PULSE 81; RESP 18; TEMP 98.3; O2SAT 97
[2025-07-26] VITALS (9 sets, daily range): BP systolic 146–185; BP diastolic 70–107; PULSE 64–77; RESP 17–19; TEMP 97.5–98.9; O2SAT 97–99
[2025-07-26 04:50] LABS: Chloride 101 mmol/L (98-107); Potassium 4.7 mmol/L (3.5-5.1); Sodium 135 mmol/L (136-145)
[2025-07-26 04:51] LABS: Anion Gap 7 (5-15); Carbon Dioxide 27 mmol/L (20-31)
[2025-07-26 04:52] LABS: Calcium 9.5 mg/dL (8.7-10.4)
[2025-07-26 04:57] LABS: BUN/Creatinine Ratio 9.6 (10.0-20.0); Blood Urea Nitrogen 20 mg/dL (9-23); Glucose 87 mg/dL (74-106)
[2025-07-26 04:59] LABS: Nucleated Red Blood Cells % 0.1 %
[2025-07-26 05:01] LABS: Hematocrit 41.9 % (41.0-53.0); Hemoglobin 14.4 g/dL (13.5-17.5); Mean Corpuscular Hemoglobin 33.3 pg (28.0-32.0); Mean Corpuscular Volume 97.0 fL (80.0-100.0)
[2025-07-26] MEDS: LOSARTAN POTASSIUM 25 MG TAB PO SCH (09:54)
[2025-07-26] MEDS: SERTRALINE HCL 50 MG TAB PO SCH (09:55)
[2025-07-26] MEDS: HYDROcodone-ACET 5/325MG TAB PO PRN (10:01)
--- NOTE | 2025-07-26 11:07 | ED.PDOC ---
GI ASSESSMENT HPI Comments This is a 64 year old male presenting to the ED with chief complaint of abdominal pain. Patient reports that he has been experiencing diffuse abdominal pain with associated N/V/D for the past 9 days. Patient denies any fever, chills, flank pain, dysuria, chest pain, or SOB. Chief Complaint: Abdominal Pain Time Seen by MD: 10:39 Primary Care Provider: NONE Reviewed Notes: Nurses Notes, Medications, Allergies Allergies: Coded Allergies: Metformin (Verified Allergy, Unknown, 07/25/25) Uncoded Allergies: GIARDIA (Allergy, Unknown, 07/25/25) Home Meds Active Scripts Hydrocodone-Acetaminophen (Hydrocodone Bitartrate/AC 5-325 mg) 1 Tab Tab, 1 TAB PO Q6HR PRN, #20 TAB Prov:DOMINIC PARKER MD 05/26/22 Levofloxacin (Levaquin) 500 Mg Tab, 500 MG PO DAILY, #10 TAB Prov:DOMINIC PARKER MD 05/26/22 Tramadol Hcl (Tramadol Hcl) 50 Mg Tab, 50 MG PO TID PRN, #30 TAB Prov:DOMINIC PARKER MD 03/29/22 Folic Acid (Folic Acid) 1 Mg Tab, 1 MG PO DAILY, #30 TAB Prov:DOMINIC PARKER MD 03/29/22 Thiamine Hcl (Thiamine Hcl) 100 Mg Tab, 1 TAB PO DAILY, #30 TAB Prov:DOMINIC PARKER MD 03/29/22 Chlordiazepoxide Hcl (Librium) 25 Mg Cp, 25 MG PO TID, #30 CAP Prov:DOMINIC PARKER MD 03/29/22 Reported Medications Aspirin (SARAH BETH ASPIRIN EC LOW DOSE) 81 Mg Tab, 325 MG OR, TAB 03/28/22 Losartan Potassium (Losartan Potassium) 25 Mg Tab, 25 MG PO DAILY for 30 Days, MG 03/28/22 Morphine Sulfate (Morphine Sulfate) 30 Mg Tab, 1 TAB PO BID, #60 TAB 03/28/22 Insulin Glargine (Lantus) 100 Unit/Ml Inj, 100 UNIT SC, INJ 03/28/22 Sertraline Hcl (Sertraline Hcl) 50 Mg Tab, 100 MG PO DAILY for 30 Days, MG 03/28/22 Fenofibrate (Fenofibrate) 160 Mg Tab, 1 TAB PO DAILY, #30 TAB 5 Refills 03/28/22 Hydrocodone-Acetaminophen (Hydrocodone/Acetaminophen 10-325 mg) 1 Tab Tab, 1 TAB PO Q4HP, TAB 03/28/22 Information Source: Patient, Spouse Mode of Arrival: Ambulatory Timing: Days Duration: Since onset Prehospital treatment: None Quality: Sharp Vomitus: Watery Stool: Watery Severity: Moderate Recent: None Recent Hx of: None Pain Location: Diffuse Modifying Factors: Nothing Associated sign and symptoms: Nausea, Vomiting, Diarrhea, Abdominal Pain Past Medical History PAST MEDICAL HISTORY: Cancer, DM, HTN Surgical History: BKA Surgical History (Other): Colostomy with reversal Family History Family History: Reviewed,noncontributory to illness, Family hx of DM Social History Smoker: Non-Smoker Alcohol: Sober Drugs: Denies Drug Use Lives In: Home Constitutional: denies: chills, diaphoresis, fatigue, fever, malaise, sweats, weakness, others EENTM: denies: blurred vision, double vision, ear bleeding, ear discharge, ear drainage, ear pain, ear ringing, eye pain, eye redness, hearing loss, mouth pain, mouth swelling, nasal discharge, nose bleeding, nose congestion, nose pain, photophobia, tearing, throat pain, throat swelling, voice changes, others Respiratory: denies: cough, hemoptysis, orthopnea, SOB at rest, shortness of breath, SOB with excertion, stridor, wheezing, others Cardiovascular: denies: chest pain, dizzy spells, diaphoresis, Dyspnea on exertion, edema, irregular heart beat, left arm pain, lightheadedness, palpitations, PND, syncope, others Gastrointestinal: reports: abdominal pain, diarrhea, nausea, vomiting; denies: abdomen distended, blood streaked bowels, constipated, dysphagia, difficulty swallowing, hematemesis, melena, poor appetite, poor fluid intake, rectal bleeding, rectal pain, others Genitourinary: denies: burning, dysuria, flank pain, frequency, hematuria, incontinence, penile discharge, penile sore, pain, testicle pain, testicle swel ling, urgency, others Neurological: denies: dizziness, fainting, headache, left sided numbness, left sided weakness, numbness, paresthesia, pre-existing deficit, right sided numbness, right sided weakness, seizure, speech problems, tingling, tremors, weakness, others Musculoskeletal: denies: back pain, gout, joint pain, joint swelling, muscle pain, muscle stiffness, neck pain, others Integumetry: denies: bruises, change in color, change in hair/nails, dryness, laceration, lesions, lumps, rash, wounds, others Allergic/Immunocompromised: denies: Difficulty Healing, Frequent Infections, Hives, Itching, others Hematologic/Lymphatic: denies: anemia, blood clots, easy bleeding, easy bruising, swollen glands, others Endocrine: denies: excessive hunger, excessive sweating, excessive thirst, excessive urination, flushing, intolerance to cold, intolerance to heat, unexplained weight gain, unexplained weight loss, others Psychiatric: denies: anxiety, bipolar disorder, depression, hopeless, panic disorder, schizophrenia, sleepless, suicidal, others All Other Systems: Reviewed and Negative Physical Exam General Appearance: No Apparent Distress, Normal HEENT: Normal ENT Inspection, Pharynx Normal, TMs Normal Neck: Full Range of Motion, Non-Tender, Normal, Normal Inspection Respiratory: Chest Non-Tender, Lungs Clear, No Accessory Muscle Use, No Respiratory Distress, Normal Breath Sounds Cardiovascular: No Edema, No JVD, No Murmur, No Gallop, Normal Peripheral Pulses, Regular Rate/Rhythm Breast Exam: Deferred Gastrointestinal: No Organomegaly, No Pulsatile Mass, Normal Bowel Sounds, Soft, Tenderness (Diffuse abdominal tenderness) Genitalia: Deferred Pelvic: Deferred Rectal: Deferred Extremities: No calf tenderness, Normal capillary refill, Normal inspection, Non-tender, No pedal edema, Other (Left BKA) Musculoskeletal : Apperance: Normal Neurologic: Alert, insurance writer II-XII nml as Tested, No Motor Deficits, Normal Affect, Normal Mood, No Sensory Deficits Cerebellar Function: Normal Reflexes: Normal Skin: Dry, Normal Color, Warm Lymphatic: No Adenopathy Was a procedure done? Was a procedure done?: No GI differential Dx Differential Diagnosis: Gastritis/PUD, Gastroenteritis, GI hemorrhage, UTI, Urolithiasis, Dehydration, Electrolyte Imbalance X-Ray, Labs, Meds, VS Vital Signs Date Time Temp Pulse Resp B/P (MAP) Pulse Ox O2 Delivery O2 Flow Rate FiO2 07/25/25 12:07 88 14 178/ (121) 99 07/25/25 12:06 88 14 178/07/25/25 11:13 52 17 195/105 07/25/25 10:44 98.3 52 17 195/105 (135) 97 98.3 07/25/25 09:27 92 07/25/25 09:17 97.0 104 18 181/113 99 97.0 Lab Test 07/25/25 12:47 07/25/25 10:47 07/25/25 10:10 07/25/25 09:47 Range/Units Troponin I High Sensitivity Pending 18 18 </=54 ng/L Urine Color Light-yellow Yellow Urine Clarity Clear Clear Urine pH 6.0 5.0-9.0 Urine Specific Steen 1.011 1.001-1.035 Urine Protein 2+ H Negative Urine Ketones Negative Negative Urine Blood 1+ H Negative /uL Urine Nitrite Negative Negative Urine Bilirubin Negative Negative Urine Urobilinogen Normal Negative mg/dL Urine Leukocyte Esterase Negative Negative /uL Urine RBC 1 0 - 3 /hpf Urine Microscopic WBC 1 0-3 /HPF Urine Squamous Epithelial Cells None seen <5 /hpf Urine Bacteria None seen None Seen /hpf Urine Glucose Normal Normal mg/dL White Blood Count 7.6 4.4-10.8 10^3/uL Red Blood Count 4.76 4.5-5.90 10^6/uL Hemoglobin 15.4 13.5-17.5 g/dL Hematocrit 46.3 41.0-53.0 % Mean Corpuscular Volume 97.2 80.0-100.0 fL Mean Corpuscular Hemoglobin 32.4 H 28.0-32.0 pg Mean Corpuscular Hemoglobin Concent 33.4 32.0-36.0 g/dL Red Cell Distribution Width 14.7 H 11.8-14.3 % Platelet Count 305 140-450 10^3/uL Mean Platelet Volume 6.7 L 6.9-10.8 fL Neutrophils (%) (Auto) 79.0 37.0-80.0 % Lymphocytes (%) (Auto) 10.6 10.0-50.0 % Monocytes (%) (Auto) 8.0 0.0-12.0 % Eosinophils (%) (Auto) 1.9 0.0-7.0 % Basophils (%) (Auto) 0.5 0.0-2.0 % Neutrophils # (Auto) 6.0 1.6-8.6 10 ^3/uL Lymphocytes # (Auto) 0.8 0.4-5.4 10 ^3/uL Monocytes # (Auto) 0.6 0-1.3 10 ^3/uL Eosinophils # (Auto) 0.1 0-0.8 10 ^3/uL Basophils # (Auto) 0 0-0.2 10 ^3/uL Nucleated Red Blood Cells 0.0 % Sodium Level 131 L 136-145 mmol/L Potassium Level 4.3 3.5-5.1 mmol/L Chloride Level 96 L 98-107 mmol/L Carbon Dioxide Level 25 20-31 mmol/L Anion Gap 10 5-15 Blood Urea Nitrogen 13 9-23 mg/dL Creatinine 1.71 H 0.700-1.30 mg/dL Glomerular Filtration Rate Calc 44 >90 mL/min BUN/Creatinine Ratio 7.6 L 10.0-20.0 Serum Glucose 155 H 74-106 mg/dL Calcium Level 9.7 8.7-10.4 mg/dL Current Medications Medications (Trade) Dose Ordered Sig/Juliet Route Start Time Stop Time Status Last Admin Sodium Chloride 1,000 ml @ 1,000 mls/hr Q1H ONCE IV 07/25/25 10:45 07/25/25 11:44 DC 07/25/25 11:11 Ondansetron HCl (Zofran) 4 mg ONCE ONCE IV 07/25/25 10:45 07/25/25 10:46 DC 07/25/25 11:12 Morphine Sulfate 4 mg ONCE ONCE IV 07/25/25 11:00 07/25/25 11:01 DC 07/25/25 11:13 [place] [id number] Ph: [phone] DIAGNOSTIC IMAGING Diagnostic Imaging Report : [id number] Signed PATIENT: SOPHIE DEL TORO ACCT: [id number] UNIT: [id number] : 1960 LOC: ER ROOM / BED: / AGE / SEX: 64 / M ADM STATUS: REG ER SERVICE 1034 ORDERING PHYSICIAN: ERNESTO JIMENEZ MD PROCEDURE(s): ABPLIV - CT AB PEL WITH IV CON ONLY REASON: abdominal pain ORDER NUMBER(s): [id number], ACCESSION NUMBER(s): [id number] Indication: abdominal pain Technique: CT axial images of the abdomen and pelvis are obtained with contrast. Coronal and sagittal reformats were obtained. Radiation Dose Information: CTDI volume is 12.2 mGy. Dose-length product is 789 mGy*cm Comparison: CT CHEST/AB/PL W CON- IV ONLY on DOS: 05/24/22 FINDINGS: Lung bases demonstrate atelectasis possible right lower lobe nodule measuring 9 mm. Coronary artery calcification disease. Adrenal glands, spleen, pancreas unremarkable. Hepatic steatosis. No CT evidence for cholelithiasis. Kidneys demonstrate no hydronephrosis. Gastric distention. Small bowel loops are normal in caliber. Possible postsurgical changes in the sigmoid colon. Colonic diverticula. Postsurgical changes transverse colon. No secondary signs for appendicitis. Abdominal aortic atherosclerotic disease. Bladder partially distended. No free pelvic fluid. No inguinal lymphadenopathy. No aggressive osseous process. [id number] thoracolumbar degenerative disc disease. IMPRESSION: Postsurgical changes large bowel as described. Moderate gastric distention. Hepatic steatosis. Atherosclerotic disease. Possible 9 mm right lower lobe solid nodule. Recommend follow-up per Fleischner society criteria. Other findings as described ATED BY: KADI HORTON MD DICTATED DATE/TIME: 07/25/251136 SIGNED BY: KADI HORTON MD SIGNED DATE/TIME: 07/25/251136 CC: Time of 1ST Reevaluation: 11:37 Reevaluation 1ST: Unchanged Patient Education/Counseling: Diagnosis, Treatment Family Education/Counseling: Diagnosis, Treatment SEPSIS Sepsis Screen Date sepsis recognized/suspect: Jul 25, 2025 Time Sepsis recognized/suspect: 919 Recent Procedure: No On Antibiotic Therapy: No Respiratory Rate >20: No Heart Rate >90: Yes Temp<36 C (96.8 F) or >38.3 C: No SBP <90 or MAP <65 mmHG: No New Acute Mental Status Change: No Is the patient on CPAP, BIPAP,: No Physician Orders Chest Portable (07/25/25 09:34) Troponin-I Hs (07/25/25 12:34) Ct Ab Pel With Iv Con Only (07/25/25 10:34) Vital Signs Date Time Temp Pulse Resp B/P (MAP) Pulse Ox O2 Delivery O2 Flow Rate FiO2 07/25/25 12:07 88 14 178/93 (121) 99 07/25/25 12:06 88 14 178/93 07/25/25 11:13 52 17 195/105 07/25/25 10:44 98.3 52 17 195/105 (135) 97 98.3 07/25/25 09:27 92 07/25/25 09:17 97.0 104 18 181/113 99 97.0 Laboratory Tests Test 07/25/25 09:47 White Blood Count 7.6 10^3/uL (4.4-10.8) Medications Medications Dose Ordered Sig/Juliet Route Start Time Stop Time Status Last Admin Dose Admin Morphine Sulfate 4 mg ONCE ONCE IV 07/25/25 11:00 07/25/25 11:01 DC 07/25/25 11:13 Ondansetron HCl 4 mg ONCE ONCE IV 07/25/25 10:45 07/25/25 10:46 DC 07/25/25 11:12 Sodium Chloride 1,000 ml @ 1,000 mls/hr Q1H ONCE IV 07/25/25 10:45 07/25/25 11:44 DC 07/25/25 11:11 Departure 1 Departure Time of Disposition: 13:11 (Patient presented with abdominal pain that was concerning for possible appendicits, gastritis, cholecystitis, colitis, gastroenteritis, sbo, or orther possible surgical emergency. Data: 1. I ordered and reviewed the result of at least 3 labs including a CBC, BMP, and Urinalysis. 2. I independently interpreted the following tests: CT Abdomen and Pelvis is concerning for .Risk:This patient has a high risk of morbidity due to further diagnostic testing or treatment and may suffer from an acute abdominal process disorder. Workup reveals and patient should be admitted for further workup. and possible expert consultation. ) Impression: Primary Impression: Intractable abdominal pain Disposition: ADMITTED INPATIENT Admit to: Med Surg Condition: Guarded Critical Care Note Critical Care Time?: No Critical care comment: Intractable abdominal pain Authorized and Performed by: Ernesto Jimenez MD Total critical care time: Approximately 37 minutes Due to a high probability of clinically significant, life threatening deterioration, the patient required my highest level of preparedness to intervene emergently and I personally spent this critical care time directly and personally managing the patient. This critical care time included obtaining a history; examining the patient; pulse oximetry; ordering and review of studies; arranging urgent treatment with development of a management plan; evaluation of patient's response to treatment; frequent reassessment; and, discussions with other providers. This critical care time was performed to assess and manage the high probability of imminent, life-threatening deterioration that could result in multi-organ failure. It was exclusive of separately billable procedures and treating other patients and teaching time. Please see my other sections and the rest of the note for further information on patient assessment and treatment. Stability Stability form required: No Heart Score Heart Score: Heart Score Response (Comments) Value History N/A 0 EKG N/A 0 Age N/A 0 Risk Factors N/A 0 Troponin N/A 0 Total 0 I personally scribed for ERNESTO JIMENEZ MD ([email or web address]) on 07/25/25 at 10:44. Electronically submitted by Guillaume Armstrong ([email or web address]). I personally scribed for ERNESTO JIMENEZ MD ([email or web address]) on 07/25/25 at 11:53. Electronically submitted by Guillaume Armstrong ([email or web address]). ERNESTO JIMENEZ MD Jul 25, 2025 10:44
--- NOTE | 2025-07-26 11:22 | DVHHP2 ---
History of Present Illness Reason for Visit: Abdominal pain History of Present Illness 61-year-old male presents for evaluation of abdominal pain. Patient endorses a six day history of lower abdominal pain that is nonradiating he describes the pain as sharp/cramping intermittently. He reports nausea, vomiting, chills and greenish diarrhea. Past Medical History Colon cancer, diabetes mellitus, hypertension Past Surgical History Left BKA, colectomy Family History Noncontributory Smoke: No ALCOHOL: none Drugs: None Lives: with Family Review of Systems Review of Systems Review of systems are currently negative otherwise addressed in HPI. Allergies: Coded Allergies: Metformin (Verified Allergy, Unknown, 07/25/25) Uncoded Allergies: GIARDIA (Allergy, Unknown, 07/25/25) Medications Current Medications Medications Dose Ordered Sig/Juliet Route Start Time Stop Time Status Last Admin Dose Admin Losartan Potassium 25 mg DAILY PO 07/26/25 10:00 Clonidine HCl 0.1 mg Q6HP PRN PO 07/25/25 15:00 Sertraline HCl 50 mg DAILY PO 07/26/25 10:00 Acetaminophen/ Hydrocodone Bitart 1 tab Q4HP PRN PO 07/25/25 15:00 Ondansetron HCl 4 mg Q4HP PRN IV 07/25/25 15:00 Acetaminophen 650 mg Q6HP PRN PO 07/25/25 15:00 Diagnostic Test (Pha) 1 strip ACHS 07/25/25 17:00 Insulin Human Regular ACHS SC 07/25/25 17:00 Dextrose 50 ml UD PRN IV 07/25/25 15:00 Ketorolac Tromethamine 15 mg Q6HPRN PRN IV 07/25/25 15:00 07/30/25 14:59 Exam Vital Signs Vital Signs Date Time Temp Pulse Resp B/P (MAP) Pulse Ox O2 Delivery O2 Flow Rate FiO2 07/25/25 15:23 99 20 99 Room Air 07/25/25 15:23 97.9 139/95 (110) 97.9 Exam Gen: 64-year-old male in no apparent distress. Skin: Warm, dry, normal color and texture, no rash. HEENT: Normocephalic atraumatic, mucous membranes moist and pink. Neck: Cervical and supraclavicular nodes normal without enlargement, trachea is midline, thyroid gland is normal without masses. Pulmonary: Clear to auscultation and percussion bilaterally. Cardiac: Regular rate and rhythm. No murmur Abdomen: Soft, nontender, nondistended, bowel sounds present all 4 quadrants, no guarding, no rigidity, no organomegaly. Extremities: No cyanosis, clubbing, no edema Neuro: Cranial nerves II through XII grossly intact, normal affect and speech, no focal motor deficits. Labs/Xrays ORDERING PHYSICIAN: ERNESTO JIMENEZ MD PROCEDURE(s): CXRP - CHEST PORTABLE REASON: sob ORDER NUMBER(s): [id number], ACCESSION NUMBER(s): [id number] CHEST RADIOGRAPH Indication: sob Technique: Single frontal view of the chest was obtained Comparison: CHEST PORTABLE on DOS: 03/26/22, CXRP on DOS: 03/26/22 FINDINGS: Lines and Tubes: Anterior fusion lower cervical spine Lungs: No focal consolidation. Pleura: No effusion. No pneumothorax. Cardiomediastinal contours: Unremarkable Bones: No acute osseous abnormality. IMPRESSION: 1. No acute cardiopulmonary disease. :4 ORDERING PHYSICIAN: ERNESTO JIMENEZ MD PROCEDURE(s): ABPLIV - CT AB PEL WITH IV CON ONLY REASON: abdominal pain ORDER NUMBER(s): [id number], ACCESSION NUMBER(s): [id number] Indication: abdominal pain Technique: CT axial images of the abdomen and pelvis are obtained with contrast. Coronal and sagittal reformats were obtained. Radiation Dose Information: CTDI volume is 12.2 mGy. Dose-length product is 789 mGy*cm Comparison: CT CHEST/AB/PL W CON- IV ONLY on DOS: 05/24/22 FINDINGS: Lung bases demonstrate atelectasis possible right lower lobe nodule measuring 9 mm. Coronary artery calcification disease. Adrenal glands, spleen, pancreas unremarkable. Hepatic steatosis. No CT evidence for cholelithiasis. Kidneys demonstrate no hydronephrosis. Gastric distention. Small bowel loops are normal in caliber. Possible postsurgical changes in the sigmoid colon. Colonic diverticula. Postsurgical changes transverse colon. No secondary signs for appendicitis. Abdominal aortic atherosclerotic disease. Bladder partially distended. No free pelvic fluid. No inguinal lymphadenopathy. No aggressive osseous process. [id number] thoracolumbar degenerative disc disease. IMPRESSION: Postsurgical changes large bowel as described. Moderate gastric distention. Hepatic steatosis. Atherosclerotic disease. Possible 9 mm right lower lobe solid nodule. Recommend follow-up per Fleischner society criteria. Other findings as described Labs Test 07/25/25 12:47 07/25/25 10:10 07/25/25 09:47 Range/Units Troponin I High Sensitivity 17 </=54 ng/L Urine Color Light-yellow Yellow Urine Clarity Clear Clear Urine pH 6.0 5.0-9.0 Urine Specific [place] 1.011 1.001-1.035 Urine Protein 2+ H Negative Urine Ketones Negative Negative Urine Blood 1+ H Negative /uL Urine Nitrite Negative Negative Urine Bilirubin Negative Negative Urine Urobilinogen Normal Negative mg/dL Urine Leukocyte Esterase Negative Negative /uL Urine RBC 1 0 - 3 /hpf Urine Microscopic WBC 1 0-3 /HPF Urine Squamous Epithelial Cells None seen <5 /hpf Urine Bacteria None seen None Seen /hpf Urine Glucose Normal Normal mg/dL White Blood Count 7.6 4.4-10.8 10^3/uL Red Blood Count 4.76 4.5-5.90 10^6/uL Hemoglobin 15.4 13.5-17.5 g/dL Hematocrit 46.3 41.0-53.0 % Mean Corpuscular Volume 97.2 80.0-100.0 fL Mean Corpuscular Hemoglobin 32.4 H 28.0-32.0 pg Mean Corpuscular Hemoglobin Concent 33.4 32.0-36.0 g/dL Red Cell Distribution Width 14.7 H 11.8-14.3 % Platelet Count 305 140-450 10^3/uL Mean Platelet Volume 6.7 L 6.9-10.8 fL Neutrophils (%) (Auto) 79.0 37.0-80.0 % Lymphocytes (%) (Auto) 10.6 10.0-50.0 % Monocytes (%) (Auto) 8.0 0.0-12.0 % Eosinophils (%) (Auto) 1.9 0.0-7.0 % Basophils (%) (Auto) 0.5 0.0-2.0 % Neutrophils # (Auto) 6.0 1.6-8.6 10 ^3/uL Lymphocytes # (Auto) 0.8 0.4-5.4 10 ^3/uL Monocytes # (Auto) 0.6 0-1.3 10 ^3/uL Eosinophils # (Auto) 0.1 0-0.8 10 ^3/uL Basophils # (Auto) 0 0-0.2 10 ^3/uL Nucleated Red Blood Cells 0.0 % Sodium Level 131 L 136-145 mmol/L Potassium Level 4.3 3.5-5.1 mmol/L Chloride Level 96 L 98-107 mmol/L Carbon Dioxide Level 25 20-31 mmol/L Anion Gap 10 5-15 Blood Urea Nitrogen 13 9-23 mg/dL Creatinine 1.71 H 0.700-1.30 mg/dL Glomerular Filtration Rate Calc 44 >90 mL/min BUN/Creatinine Ratio 7.6 L 10.0-20.0 Serum Glucose 155 H 74-106 mg/dL Calcium Level 9.7 8.7-10.4 mg/dL SEPSIS Sepsis Screen Date sepsis recognized/suspect: Jul 25, 2025 Time Sepsis recognized/suspect: 1522 Recent Procedure: No On Antibiotic Therapy: No Respiratory Rate >20: No Heart Rate >90: Yes Temp<36 C (96.8 F) or >38.3 C: No SBP <90 or MAP <65 mmHG: No New Acute Mental Status Change: No Is the patient on CPAP, BIPAP,: No Physician Orders Ct Ab Pel With Iv Con Only (07/25/25 10:34) * Gi D[employer] Staffing Recruiter (07/25/25 14:58) Losartan Tablet (Cozaar Tablet) (07/26/25 10:00) Clonidine Hcl Tablet (Catapres Tablet) (07/25/25 15:00) Stool Bacterial Culture (07/25/25 14:58) Clostridium Difficile Toxin (07/25/25 14:58) Sertraline Hcl (Zoloft) (07/26/25 10:00) Admit (07/25/25 14:58) Hydrocodone-Acet 5/325mg Tab ([place] 5/32 (07/25/25 15:00) Ondansetron Hcl (Zofran) (07/25/25 15:00) Complete Blood Count (07/26/25 04:00) Condition: Stable (07/25/25 14:58) Acetaminophen Tablet (Tylenol Tablet) (07/25/25 15:00) Clear Liq Diet (07/25/25 Dinner) Bedrest With Bathroom Privileg (07/25/25 14:58) Glucose Blood (Accu-Chek Comfort Curve T (07/25/25 17:00) Insulin R (Human) (Insulin R) (07/25/25 17:00) Dextrose 50% Syringe (07/25/25 15:00) Basic Metabolic Panel (07/26/25 04:00) Ketorolac Injection (Toradol Injection) (07/25/25 15:00) Vital Signs Date Time Temp Pulse Resp B/P (MAP) Pulse Ox O2 Delivery O2 Flow Rate FiO2 07/25/25 15:23 99 20 99 Room Air 07/25/25 15:23 97.9 99 17 139/95 (110) 99 97.9 07/25/25 15:07 88 17 139/95 07/25/25 14:37 99 19 149/98 07/25/25 14:30 98.1 99 14 149/98 (115) 99 98.1 07/25/25 12:07 88 14 178/93 (121) 99 07/25/25 12:06 88 14 178/93 07/25/25 11:13 52 17 195/105 07/25/25 10:44 98.3 52 17 195/105 (135) 97 98.3 Laboratory Tests Test 07/25/25 09:47 White Blood Count 7.6 10^3/uL (4.4-10.8) Medications Medications Dose Ordered Sig/Juliet Route Start Time Stop Time Status Last Admin Dose Admin Hydromorphone HCl 1 mg ONCE ONCE IV 07/25/25 14:15 07/25/25 14:16 DC 07/25/25 14:37 1 MG Morphine Sulfate 4 mg ONCE ONCE IV 07/25/25 11:00 07/25/25 11:01 DC 07/25/25 11:13 4 MG Ondansetron HCl 4 mg ONCE ONCE IV 07/25/25 10:45 07/25/25 10:46 DC 07/25/25 11:12 4 MG Ondansetron HCl 4 mg ONCE ONCE IV 07/25/25 14:15 07/25/25 14:16 DC 07/25/25 14:30 4 MG Sodium Chloride 1,000 ml @ 1,000 mls/hr Q1H ONCE IV 07/25/25 10:45 07/25/25 11:44 DC 07/25/25 11:11 1,000 MLS/HR Assessment/Plan Assessment/Plan Assessment Acute abdominal pain Diabetes mellitus Acute kidney injury Plan Admit the patient to Med surge to the hospitalist Clear liquid diet GI consult Flagyl Pain management Resume home medications Continue treatment per orders Plan discussed with: Patient My Orders Orders - DAVID BAUMAN Procedure Category Date Status Time * Gi D[employer] Staffing Recruiter CONS 07/25/25 Transmitted 14:58 Losartan Tablet PHA 07/26/25 In Process (Cozaar Tablet) 10:00 Clonidine Hcl Tablet PHA 07/25/25 In Process (Catapres Tablet) 15:00 Stool Bacterial ABRIL 07/25/25 Logged Culture 14:58 Clostridium Difficile ABRIL 07/25/25 Logged Toxin 14:58 Sertraline Hcl PHA 07/26/25 In Process (Zoloft) 10:00 Admit ADMIT 07/25/25 Transmitted 14:58 Hydrocodone-Acet PHA 07/25/25 In Process 5/325mg Tab ([place] 15:00 Ondansetron Hcl PHA 07/25/25 In Process (Zofran) 15:00 Complete Blood Count LAB 07/26/25 Verified 04:00 Condition: Stable SULLY 07/25/25 In Process 14:58 Acetaminophen Tablet PHA 07/25/25 In Process (Tylenol Tablet) 15:00 Clear Liq Diet DIET 07/25/25 Transmitted Dinner Bedrest With Bathroom SULLY 07/25/25 In Process Privileg 14:58 Glucose Blood PHA 07/25/25 In Process (Accu-Chek Comfort 17:00 Insulin R (Human) PHA 07/25/25 In Process (Insulin R) 17:00 Dextrose 50% Syringe PHA 07/25/25 In Process 15:00 Basic Metabolic Panel LAB 07/26/25 Verified 04:00 Ketorolac Injection PHA 07/25/25 In Process (Toradol Injection) 15:00 Date of Service: Jul 25, 2025 Billing Provider: DAVID BAUMAN Common Visit Codes: [id number] INP/OBS CARE (MOD) DAVID BAUMAN Jul 25, 2025 18:02
--- NOTE | 2025-07-26 13:48 | DVHCONRES ---
Date Seen: Jul 26, 2025 Resident Creating Document: JHAJJ,SARPUNEET RESIDENT Referring Physician MAGALY Kenney Reason for Consultation Abdominal pain History of Present Illness Patient is a 64-year-old male with a medical history of colon cancer diagnosed in 2005 status post colectomy and colostomy with reversal in 2009, hypertension, type 2 diabetes mellitus presented to the hospital with a chief complaint of diarrhea for the last 8 days. Patient reported to have started to have loose bowel movements, greenish in color loose watery in consistency, denied any blood in the stools associated with diffuse abdominal pain around the umbilical area. Patient also reported to have nausea and vomitings which gradually improved and was able to tolerate water and liquids. Patient reports that his last colonoscopy was at least 10 years ago. He denies recent weight loss, fever, chills, recent travel. Reports that his daughter was sick with the flu recently Past Medical History Colon cancer, diabetes mellitus type 2, hypertension Past Surgical History 2005 colectomy with a colostomy 2010 colostomy reversal Family History: FH: kidney disease G8 MOTHER FH: liver disease G8 MOTHER Family History No relevant family history Social History Denies current smoking, alcohol, drug use Allergies: Coded Allergies: Empagliflozin (Verified Allergy, Unknown, 07/26/25) Metformin (Verified Allergy, Unknown, 07/25/25) Uncoded Allergies: GIARDIA (Allergy, Unknown, 07/25/25) Home Meds Active Scripts Hydrocodone-Acetaminophen (Hydrocodone Bitartrate/AC 5-325 mg) 1 Tab Tab, 1 TAB PO Q6HR PRN, #20 TAB Prov:DOMINIC PARKER MD 05/26/22 Levofloxacin (Levaquin) 500 Mg Tab, 500 MG PO DAILY, #10 TAB Prov:DOMINIC PARKER MD 05/26/22 Tramadol Hcl (Tramadol Hcl) 50 Mg Tab, 50 MG PO TID PRN, #30 TAB Prov:DOMINIC PARKER MD 03/29/22 Folic Acid (Folic Acid) 1 Mg Tab, 1 MG PO DAILY, #30 TAB Prov:DOMINIC PARKER MD 03/29/22 Thiamine Hcl (Thiamine Hcl) 100 Mg Tab, 1 TAB PO DAILY, #30 TAB Prov:DOMINIC PARKER MD 03/29/22 Chlordiazepoxide Hcl (Librium) 25 Mg Cp, 25 MG PO TID, #30 CAP Prov:DOMINIC PARKER MD 03/29/22 Reported Medications Aspirin (SARAH BETH ASPIRIN EC LOW DOSE) 81 Mg Tab, 325 MG OR, TAB 03/28/22 Losartan Potassium (Losartan Potassium) 25 Mg Tab, 25 MG PO DAILY for 30 Days, MG 03/28/22 Morphine Sulfate (Morphine Sulfate) 30 Mg Tab, 1 TAB PO BID, #60 TAB 03/28/22 Insulin Glargine (Lantus) 100 Unit/Ml Inj, 100 UNIT SC, INJ 03/28/22 Sertraline Hcl (Sertraline Hcl) 50 Mg Tab, 100 MG PO DAILY for 30 Days, MG 03/28/22 Fenofibrate (Fenofibrate) 160 Mg Tab, 1 TAB PO DAILY, #30 TAB 5 Refills 03/28/22 Hydrocodone-Acetaminophen (Hydrocodone/Acetaminophen 10-325 mg) 1 Tab Tab, 1 TAB PO Q4HP, TAB 03/28/22 Current Medications Current Medications Medications (Trade) Dose Ordered Sig/Juliet Route PRN Reason Start Time Stop Time Status Last Admin Losartan Potassium (Cozaar Tablet) 25 mg DAILY PO 07/26/25 10:00 07/26/25 09:54 Clonidine HCl (Catapres Tablet) 0.1 mg Q6HP PRN PO SBP>160 07/25/25 15:00 07/26/25 12:06 Sertraline HCl (Zoloft) 50 mg DAILY PO 07/26/25 10:00 Acetaminophen/ Hydrocodone Bitart ([place] 5/325MG Tab) 1 tab Q4HP PRN PO MODERATE PAIN (4-6 PAIN SCALE) 07/25/25 15:00 07/26/25 10:01 Ondansetron HCl (Zofran) 4 mg Q4HP PRN IV NAUSEA / VOMITING 07/25/25 15:00 Acetaminophen (Tylenol Tablet) 650 mg Q6HP PRN PO PAIN SCALE 1-3 OR TEMP>100.4 07/25/25 15:00 Diagnostic Test (Pha) (Accu-Chek Comfort Curve T) 1 strip ACHS 07/25/25 17:00 07/26/25 11:02 Insulin Human Regular (InsuLIN R) ACHS SC 07/25/25 17:00 07/26/25 11:03 Dextrose 50 ml UD PRN IV Blood Sugar LESS THAN 60 07/25/25 15:00 Ketorolac Tromethamine (Toradol Injection) 15 mg Q6HPRN PRN IV SEVERE PAIN (7-10 PAIN SCALE) 07/25/25 15:00 07/30/25 14:59 07/26/25 06:12 Review of Systems Patient seen and examined at the bedside Reports abdominal pain has improved and last bowel movement was reported about 24 hours ago Denies nausea or vomiting and is tolerating clear liquid diet well Vital Signs Vital Signs Date Time Temp Pulse Resp B/P (MAP) Pulse Ox O2 Delivery O2 Flow Rate FiO2 07/26/25 12:06 174/95 07/26/25 09:00 98.9 75 18 99 98.9 07/26/25 08:00 Room Air* 0 21 Physical Exam Gen - no pallor, no scleral icterus Skin - Patients skin is warm and dry. HEENT - normocephalic, atraumatic, dry mucous membranes. Neck - supple, no lymphadenopathy Pulmonary - B/L clear breath sounds cardiovascular - regular S1,S2 heard GI - soft abdomen with mild tenderness to palpation in the umbilical area. Bowel sounds normoactive. Neurological - Patient is alert and oriented x4. Following commands Extremities - left lower extremity [id number] amputation Labs/Diagnostic Data Labs Test 07/26/25 10:34 07/26/25 04:19 07/25/25 12:47 07/25/25 10:10 Range/Units POC Glucose 132 H 70-106 mg/dl White Blood Count 6.1 4.4-10.8 10^3/uL Red Blood Count 4.32 L 4.5-5.90 10^6/uL Hemoglobin 14.4 13.5-17.5 g/dL Hematocrit 41.9 41.0-53.0 % Mean Corpuscular Volume 97.0 80.0-100.0 fL Mean Corpuscular Hemoglobin 33.3 H 28.0-32.0 pg Mean Corpuscular Hemoglobin Concent 34.3 32.0-36.0 g/dL Red Cell Distribution Width 14.5 H 11.8-14.3 % Platelet Count 262 140-450 10^3/uL Mean Platelet Volume 6.6 L 6.9-10.8 fL Neutrophils (%) (Auto) 71.8 37.0-80.0 % Lymphocytes (%) (Auto) 17.8 10.0-50.0 % Monocytes (%) (Auto) 8.5 0.0-12.0 % Eosinophils (%) (Auto) 1.3 0.0-7.0 % Basophils (%) (Auto) 0.6 0.0-2.0 % Neutrophils # (Auto) 4.4 1.6-8.6 10 ^3/uL Lymphocytes # (Auto) 1.1 0.4-5.4 10 ^3/uL Monocytes # (Auto) 0.5 0-1.3 10 ^3/uL Eosinophils # (Auto) 0.1 0-0.8 10 ^3/uL Basophils # (Auto) 0 0-0.2 10 ^3/uL Nucleated Red Blood Cells 0.1 % Sodium Level 135 L 136-145 mmol/L Potassium Level 4.7 3.5-5.1 mmol/L Chloride Level 101 98-107 mmol/L Carbon Dioxide Level 27 20-31 mmol/L Anion Gap 7 5-15 Blood Urea Nitrogen 20 9-23 mg/dL Creatinine 2.09 H 0.700-1.30 mg/dL Glomerular Filtration Rate Calc 35 >90 mL/min BUN/Creatinine Ratio 9.6 L 10.0-20.0 Serum Glucose 87 74-106 mg/dL Calcium Level 9.5 8.7-10.4 mg/dL Troponin I High Sensitivity 17 </=54 ng/L Urine Color Light-yellow Yellow Urine Clarity Clear Clear Urine pH 6.0 5.0-9.0 Urine Specific [place] 1.011 1.001-1.035 Urine Protein 2+ H Negative Urine Ketones Negative Negative Urine Blood 1+ H Negative /uL Urine Nitrite Negative Negative Urine Bilirubin Negative Negative Urine Urobilinogen Normal Negative mg/dL Urine Leukocyte Esterase Negative Negative /uL Urine RBC 1 0 - 3 /hpf Urine Microscopic WBC 1 0-3 /HPF Urine Squamous Epithelial Cells None seen <5 /hpf Urine Bacteria None seen None Seen /hpf Urine Glucose Normal Normal mg/dL Assessment Acute Gastroenteritis History of colon cancer status post colectomy/colostomy and reversal Moderate gastric distention Hepatic steatosis DAYANNA on CKD likely due to VMN Uncontrolled hypertension Uncontrolled type 2 diabetes mellitus Plan - advance diet to full liquid - stool culture including C diff pending - IV fluids - watch CBC, for any signs of infection and patient may need IV antibiotics - patient may benefit from a colonoscopy as an outpatient Plan discussed with Dr. Payton Plan discussed with: Patient, Other (BURTON Ignacio) MECHELLE CALDERÓN RESIDENT Jul 26, 2025 13:48
[2025-07-26] MEDS: PANTOPRAZOLE 40 MG TAB PO ONE (16:28)
[2025-07-26] MEDS ORDERED: VALS1TAB57 PO (16:55)
[2025-07-27 01:00] VITALS: BP 196/108; PULSE 67; RESP 17; TEMP 97.4; O2SAT 98
[2025-07-27 05:00] VITALS: BP 194/114; PULSE 68; RESP 17; TEMP 97.1; O2SAT 90
[2025-07-27] MEDS: PANTOPRAZOLE 40 MG TAB PO SCH (05:12)
[2025-07-27] MEDS: ONDANSETRON HCL 4 MG/2 ML VIAL IV PRN (05:16)
[2025-07-27 09:00] VITALS: BP 152/96; PULSE 76; RESP 15; TEMP 98.3; O2SAT 97
--- NOTE | 2025-07-27 12:56 | DVHPN2 ---
Progress Note Date Seen: Jul 27, 2025 Resident Creating Document: JHAJMECHELLE Blackman RESIDENT Medical Necessity Reason Pt with a Central, PICC or Fol: No Subjective Review of Systems Patient seen and examined at the bedside Reports tolerating full liquid diet but not able to eat the full meal Reports mild nausea but denies any vomiting Objective vital signs Vital Sign Date Time Temp Pulse Resp B/P (MAP) Pulse Ox O2 Delivery O2 Flow Rate FiO2 07/27/25 10:10 152/96 07/27/25 09:00 98.3 76 15 97 98.3 07/27/25 08:00 Room Air* 0 21 Total Intake and Output 07/26/25 07/26/25 07/27/25 15:00 23:00 07:00 Intake Total 900 ml 900 ml Balance 900 ml 900 ml medications Current Medications Medications Dose Ordered Sig/Juliet Route Start Time Stop Time Status Last Admin Dose Admin Losartan Potassium 25 mg DAILY PO 07/26/25 10:00 07/27/25 10:10 25 MG Clonidine HCl 0.1 mg Q6HP PRN PO 07/25/25 15:00 07/27/25 05:12 0.1 MG Sertraline HCl 50 mg DAILY PO 07/26/25 10:00 Acetaminophen/ Hydrocodone Bitart 1 tab Q4HP PRN PO 07/25/25 15:00 07/27/25 06:31 1 TAB Ondansetron HCl 4 mg Q4HP PRN IV 07/25/25 15:00 07/27/25 05:16 4 MG Acetaminophen 650 mg Q6HP PRN PO 07/25/25 15:00 Diagnostic Test (Pha) 1 strip ACHS 07/25/25 17:00 07/27/25 11:34 1 STRIP Insulin Human Regular ACHS SC 07/25/25 17:00 07/26/25 11:03 2 UNITS Dextrose 50 ml UD PRN IV 07/25/25 15:00 Ketorolac Tromethamine 15 mg Q6HPRN PRN IV 07/25/25 15:00 07/30/25 14:59 07/26/25 06:12 15 MG Pantoprazole Sodium 40 mg DAILY@0600 PO 07/27/25 06:00 07/27/25 05:12 40 MG Examination Gen - no pallor, no scleral icterus Skin - Patients skin is warm and dry. HEENT - normocephalic, atraumatic, dry mucous membranes. Neck - supple, no lymphadenopathy Pulmonary - B/L clear breath sounds cardiovascular - regular S1,S2 heard GI - soft abdomen without any tenderness to palpation. Bowel sounds normoactive. Neurological - Patient is alert and oriented x4. Following commands Extremities - left lower extremity [id number] amputation laboratory and microbiology Laboratory Tests 07/26/25 04:19 Test 07/26/25 04:19 Range/Units Serum Glucose 87 74-106 mg/dL Problem List/Assessment/Plan Problem List/Assessment/Plan Acute Gastroenteritis History of colon cancer status post colectomy/colostomy and reversal Moderate gastric distention Hepatic steatosis DAYANNA on CKD likely due to VMN Uncontrolled hypertension Uncontrolled type 2 diabetes mellitus Plan - tolerating full liquid diet, continue and advanced as tolerated - watch CBC, for any signs of infection and patient may need IV antibiotics - patient may benefit from a colonoscopy as an outpatient - does not report of any bowel movements since the patient has been in the hospital Plan discussed with Dr. Payton Plan discussed with: Patient, Other (BURTON Byrne) My Orders My Orders Orders - MECHELLE CALDEÓRN RESIDENT Procedure Category Date Status Time Pantoprazole Tablet PHA 07/27/25 In Process (Protonix Tablet) 06:00 Full Liq Diet DIET 07/27/25 Transmitted Lunch Dietary Evaluation Review Comments: Nutrition Recommendation: 1) [facility] 2gm Na diet as medically feasible 2) Monitor PO intake, lab values, weight trend, and I/O Expected Outcomes/Goals: GI symptoms to improve Fu 3-5 days MECHELLE CALDERÓN RESIDENT Jul 27, 2025 12:56
[2025-07-27 13:00] VITALS: BP 215/123; PULSE 76; RESP 18; TEMP 97.9; O2SAT 97
[2025-07-27 16:34] VITALS: BP 202/144; PULSE 61; RESP 20; TEMP 98.3; O2SAT 98
[2025-07-27] MEDS: hydrALAZINE HCL 20 MG/ML VL IV PRN (18:16)
[2025-07-27 21:00] VITALS: BP 158/85; PULSE 70; RESP 16; TEMP 98.7; O2SAT 98
[2025-07-28 01:00] VITALS: BP 149/81; PULSE 70; RESP 16; TEMP 98.9; O2SAT 97
[2025-07-28 05:00] VITALS: BP 176/90; PULSE 65; RESP 18; TEMP 98.7; O2SAT 96
[2025-07-28 07:58] VITALS: RESP 16; O2SAT 97
[2025-07-28 09:00] VITALS: BP 193/87; PULSE 77; RESP 16; TEMP 97.6; O2SAT 97
[2025-07-28 13:00] VITALS: BP 180/93; PULSE 83; RESP 18; TEMP 98.7; O2SAT 95
--- NOTE | 2025-07-28 13:39 | DVHPN2 ---
Reviewed: Care Plan, H&P, Labs Changes from previous H/P or p: No Changes General: Per HPI Objective Vitals Vital Signs Date Time Temp Pulse Resp B/P (MAP) Pulse Ox O2 Delivery O2 Flow Rate FiO2 07/28/25 12:18 183/92 07/28/25 09:00 97.6 77 16 97 97.6 07/28/25 07:58 Room Air* 0 21 Intake/Output Intake and Output 07/28/25 07:00 Intake Total 1050 ml Output Total 1175 ml Balance -125 ml Intake Oral 1050 ml Output Urine Total 1175 ml # Bowel Movements 1 General Appearance: Alert, Oriented X3, Cooperative Cardiovascular: Regular rate, Normal S1 Medications Current Medications Medications Dose Ordered Sig/Juliet Route Start Time Stop Time Status Last Admin Dose Admin Losartan Potassium 25 mg DAILY PO 07/26/25 10:00 07/28/25 09:00 25 MG Clonidine HCl 0.1 mg Q6HP PRN PO 07/25/25 15:00 07/28/25 09:01 0.1 MG Sertraline HCl 50 mg DAILY PO 07/26/25 10:00 Acetaminophen/ Hydrocodone Bitart 1 tab Q4HP PRN PO 07/25/25 15:00 07/28/25 05:06 1 TAB Ondansetron HCl 4 mg Q4HP PRN IV 07/25/25 15:00 07/28/25 05:06 4 MG Acetaminophen 650 mg Q6HP PRN PO 07/25/25 15:00 Diagnostic Test (Pha) 1 strip ACHS 07/25/25 17:00 07/28/25 11:24 1 STRIP Insulin Human Regular ACHS SC 07/25/25 17:00 07/27/25 21:30 2 UNITS Dextrose 50 ml UD PRN IV 07/25/25 15:00 Ketorolac Tromethamine 15 mg Q6HPRN PRN IV 07/25/25 15:00 07/30/25 14:59 07/28/25 08:57 15 MG Pantoprazole Sodium 40 mg DAILY@0600 PO 07/27/25 06:00 07/28/25 05:05 40 MG Hydralazine HCl 10 mg Q8HP PRN IV 07/27/25 18:00 07/28/25 12:18 10 MG Laboratory Results Laboratory Tests 07/26/25 04:19 Urinalysis Test 07/25/25 10:10 Urine Color Light-yellow (Yellow) Urine Clarity Clear (Clear) Urine pH 6.0 (5.0-9.0) Urine Specific [place] 1.011 (1.001-1.035) Urine Protein 2+ (Negative) H Urine Ketones Negative (Negative) Urine Blood 1+ /uL (Negative) H Urine Nitrite Negative (Negative) Urine Bilirubin Negative (Negative) Urine Urobilinogen Normal mg/dL (Negative) Urine Leukocyte Esterase Negative /uL (Negative) Urine RBC 1 /hpf (0 - 3) Urine Microscopic WBC 1 /HPF (0-3) Urine Squamous Epithelial Cells None seen /hpf (<5) Urine Bacteria None seen /hpf (None Seen) Urine Glucose Normal mg/dL (Normal) Labs and/or images reviewed: Labs reviewed by me, Image(s) reviewed by me Assessment/Plan Assessment/Plan Acute abdominal pain Diabetes mellitus Acute kidney injury/ATN bacterial gastroenteritis nausea/vomiting unable to have PO intake Plan discussed with: Patient Date of Service: Jul 27, 2025 Billing Provider: MICHAEL PINA DO Common Visit Codes: [id number] INP/OBS CARE(HIGH) MICHAEL PINA DO Jul 28, 2025 13:39
[2025-07-28] MEDS ORDERED: METR-344 PO (13:52)
--- NOTE | 2025-07-28 14:59 | DVHDS2 ---
Discharge Summary Date of Admission Jul 25, 2025 at 14:58 Date of Discharge: Jul 28, 2025 Labs/Diagnostic Data: Laboratory Results Test 07/28/25 11:20 07/26/25 04:19 07/25/25 12:47 07/25/25 10:10 POC Glucose 117 mg/dl (70-106) White Blood Count 6.1 10^3/uL (4.4-10.8) Red Blood Count 4.32 10^6/uL (4.5-5.90) Hemoglobin 14.4 g/dL (13.5-17.5) Hematocrit 41.9 % (41.0-53.0) Mean Corpuscular Volume 97.0 fL (80.0-100.0) Mean Corpuscular Hemoglobin 33.3 pg (28.0-32.0) Mean Corpuscular Hemoglobin Concent 34.3 g/dL (32.0-36.0) Red Cell Distribution Width 14.5 % (11.8-14.3) Platelet Count 262 10^3/uL (140-450) Mean Platelet Volume 6.6 fL (6.9-10.8) Neutrophils (%) (Auto) 71.8 % (37.0-80.0) Lymphocytes (%) (Auto) 17.8 % (10.0-50.0) Monocytes (%) (Auto) 8.5 % (0.0-12.0) Eosinophils (%) (Auto) 1.3 % (0.0-7.0) Basophils (%) (Auto) 0.6 % (0.0-2.0) Neutrophils # (Auto) 4.4 10 ^3/uL (1.6-8.6) Lymphocytes # (Auto) 1.1 10 ^3/uL (0.4-5.4) Monocytes # (Auto) 0.5 10 ^3/uL (0-1.3) Eosinophils # (Auto) 0.1 10 ^3/uL (0-0.8) Basophils # (Auto) 0 10 ^3/uL (0-0.2) Nucleated Red Blood Cells 0.1 % Sodium Level 135 mmol/L (136-145) Potassium Level 4.7 mmol/L (3.5-5.1) Chloride Level 101 mmol/L (98-107) Carbon Dioxide Level 27 mmol/L (20-31) Anion Gap 7 (5-15) Blood Urea Nitrogen 20 mg/dL (9-23) Creatinine 2.09 mg/dL (0.700-1.30) Glomerular Filtration Rate Calc 35 mL/min (>90) BUN/Creatinine Ratio 9.6 (10.0-20.0) Serum Glucose 87 mg/dL (74-106) Calcium Level 9.5 mg/dL (8.7-10.4) Troponin I High Sensitivity 17 ng/L (</=54) Urine Color Light-yellow (Yellow) Urine Clarity Clear (Clear) Urine pH 6.0 (5.0-9.0) Urine Specific [place] 1.011 (1.001-1.035) Urine Protein 2+ (Negative) Urine Ketones Negative (Negative) Urine Blood 1+ /uL (Negative) Urine Nitrite Negative (Negative) Urine Bilirubin Negative (Negative) Urine Urobilinogen Normal mg/dL (Negative) Urine Leukocyte Esterase Negative /uL (Negative) Urine RBC 1 /hpf (0 - 3) Urine Microscopic WBC 1 /HPF (0-3) Urine Squamous Epithelial Cells None seen /hpf (<5) Urine Bacteria None seen /hpf (None Seen) Urine Glucose Normal mg/dL (Normal) Other Laboratory Tests 07/26/25 04:19 Brief Hx & Hospital Course: Acute abdominal pain Diabetes mellitus Acute kidney injury/ATN bacterial gastroenteritis nausea/vomiting unable to have PO intake discharged to home Condition at Discharge: Fair Final Diagnosis/Problems List see above Discharge Disposition: Home Discharge Instruct/Medications Diet: Cardiac 2g Na,low cholest Activity: No Restrictions, As Tolerated Scheduled Chlordiazepoxide Hcl (Librium), 25 MG PO TID Fenofibrate (Fenofibrate), 1 TAB PO DAILY, (Reported) Folic Acid (Folic Acid), 1 MG PO DAILY Hydrocodone-Acetaminophen (Hydrocodone/Acetaminophen 10-325 mg), 1 TAB PO Q4HP, (Reported) Levofloxacin (Levaquin), 500 MG PO DAILY Losartan Potassium (Losartan Potassium), 25 MG PO DAILY, (Reported) Metronidazole (Flagyl), 1 TAB PO TID Morphine Sulfate (Morphine Sulfate), 1 TAB PO BID, (Reported) Sertraline Hcl (Sertraline Hcl), 100 MG PO DAILY, (Reported) Thiamine Hcl (Thiamine Hcl), 1 TAB PO DAILY Valsartan (Valsartan), 80 MG PO DAILY, (Reported) Scheduled PRN Hydrocodone-Acetaminophen (Hydrocodone Bitartrate/AC 5-325 mg), 1 TAB PO Q6HR PRN Tramadol Hcl (Tramadol Hcl), 50 MG PO TID PRN Miscellaneous Medications Aspirin (Norma Aspirin Ec Low Dose), 325 MG OR, (Reported) Insulin Glargine (Lantus), 100 UNIT SC, (Reported) Discharge Statement: "Patient was advised to return to the ER or call 911 if any headaches, dizziness, shortness of breath, chest pain, abdominal pain, bleeding, fevers, or worsening of medical condition. Patient was counseled about treatment plan, medications, possible side effects, patientverbalized understanding. All questions were answered to the best of my ability. This discharge took greater then 30 minutes in planning, reviewing documentation, counseling the patient, and discussing with other team members." ASSESSMENT ASSESSMENT Assessment Date of Service: Jul 28, 2025 Billing Provider: MICHAEL PINA DO Common Visit Codes: 21165-HQS/OBS DISCH DAY >30min MICHAEL PINA DO Jul 28, 2025 14:59
[2025-07-28 15:14] VITALS: BP 148/82; PULSE 83; RESP 18; TEMP 98.7; O2SAT 96
== END 2025-07-28 16:30 | disposition home or self-care (01) | DRG 248 ==
LOC: ER 09:15 → OVERFLOW 14:58 → EAST 17:46
PROVIDERS: ADMIT Internal Medicine; ATTEND Internal Medicine
DX: A04.9 Bacterial intestinal infection, unspecified (principal); N17.0 Acute kidney failure with tubular necrosis; N18.9 Chronic kidney disease, unspecified; E11.22 Type 2 diabetes mellitus with diabetic chronic kidney disease; I12.9 Hypertensive chronic kidney disease with stage 1 through stage 4 chronic kidney disease, or unspecified chronic kidney disease; Z88.8 Allergy status to other drugs, medicaments and biological substances; Z79.82 Long term (current) use of aspirin; Z79.4 Long term (current) use of insulin; Z89.512 Acquired absence of left leg below knee; Z85.038 Personal history of other malignant neoplasm of large intestine
CPT/HCPCS: 36415; 71045; 74177; 80048; 81001; 82962; 84484; 85025; 93005; 96361; 96374; 96375; 96376; 99291; G0378; J1815; J1885; J2405

== ENCOUNTER 2025-08-12 10:28 | Outpatient (CLI) | payer MEDICAID ==
[~2025-08-12 10:28] MED LIST changes: +METR-344 PO; +VALS1TAB57 PO
[2025-08-12 11:35] LABS: Chloride 101 mmol/L (98-107); Sodium 136 mmol/L (136-145)
[2025-08-12 11:36] LABS: Anion Gap 9 (5-15); Carbon Dioxide 26 mmol/L (20-31); Potassium 5.1 mmol/L (3.5-5.1)
[2025-08-12 11:37] LABS: Calcium 9.9 mg/dL (8.7-10.4)
[2025-08-12 11:41] LABS: BUN/Creatinine Ratio 13.1 (10.0-20.0)
[2025-08-12 11:43] LABS: Blood Urea Nitrogen 23 mg/dL (9-23); Glucose 108 mg/dL (74-106)
== END 2025-08-12 17:00 | disposition home or self-care (01) ==
LOC: LAB 10:28
PROVIDERS: ATTEND Internal Medicine
DX: E11.9 Type 2 diabetes mellitus without complications (principal)
CPT/HCPCS: 36415; 80048; 83036